=== PATIENT | male | born 1980 | race Caucasian/White ===

== ENCOUNTER 2019-06-21 16:55 | Inpatient (IN) | payer BC ==
[2019-06-21] VITALS (8 sets, daily range): BP systolic 130–160; BP diastolic 81–101; PULSE 99–128; RESP 15–27; Ht 177.8 cm; Wt 116.6 kg
[~2019-06-21] VITALS: Ht 177.8 cm; Wt 116.6 kg
[~2019-06-21 16:55] MED LIST: ACET500C5 PO; AMLO-147 PO; DOCU-144 PO; FAMO20TA18 PO; FER325 PO; POLY17PO6 PO
[2019-06-21] MEDS: morphine 4 MG/ML VIAL IV PRN ×2 (18:29→23:38)
[2019-06-21] MEDS ORDERED: ONDANSETRON 4 MG INJ IV PRN (18:30)
[2019-06-21] MEDS ORDERED: ACETAMINOPHEN 325 MG TAB PO PRN (18:30)
[2019-06-21] MEDS ORDERED: HYDROmorphONE 2 MG/ML SYG IV STA (19:24)
[2019-06-21] MEDS ORDERED: FENTAnyl 50 MCG/ML VIAL IV PRN (19:30)
[2019-06-21] MEDS: DEXTROSE 5%-0.45% NACL 1,000 ML IV SCH (20:41)
[2019-06-21] MEDS: FENTAnyl 50 MCG/ML VIAL IV PRN ×2 (21:05→23:00)
[2019-06-21] MEDS ORDERED: IOHEXOL 14.3 MG(I)/ML (ADULT) BTL PO ONE (22:30)
--- NOTE | 2019-06-21 23:11 | HP ---
DATE OF ADMISSION: 06/21/2019 CHIEF COMPLAINT: Severe left lower quadrant abdominal pain. HISTORY OF PRESENT ILLNESS: A 38-year-old male with unremarkable past medical history who was transf erred from [facility] after he presented to that emergency room with complaint of severe le ft lower quadrant abdominal pain for the last 2 days prior to admission. The patient was driving to [place] when he began to experience severe pain. He was evaluated in [place]. He was told to have h emorrhagic left renal cyst and asked to follow up with his doctor after he returned to [place]. The patient continued to have excruciating pain. He describes the pain radiating to left groin pain. No hematuria. No fevers or chills. No flank pain. Repeat CAT scan seen in [facility] showed the hemorrhagic cyst at the inferior pole of lalito guevara measuring about 13 x 10 x 8 cm with some mild pelvic fluid collection. PAST MEDICAL HISTORY: None. MEDICATIONS PRIOR TO ADMISSION: Percocet. SOCIAL HISTORY: The patient lives at home. 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 He denies tobacco or alcohol use. PHYSICAL EXAMINATION: GENERAL: Well-developed, well-nourished young male who is in no apparent distress. VITAL SIGNS: Blood pressure 148/81, pulse 112, respiration 19, temperature 99. HEENT: Extraocular muscles are intact. Pupils are equal and reactive to light bilaterally. Sclerae are anicteric. Oropharynx is clear and moist. NECK: Supple. No JVD, no carotid bruits. LUNGS: Clear to auscultation bilaterally. CARDIAC: Tachycardia. No murmurs or gallops. ABDOMEN: Soft. Left lower quadrant tenderness to palpation. No rebound or guarding. Normoactive b owel sounds. EXTREMITIES: No clubbing, cyanosis or edema. BACK: No CVA tenderness. NEUROLOGICAL: Nonfocal. ASSESSMENT: A 38-year-old male with hemorrhagic left renal cyst which has now evolved into a hematom a. The patient is having severe pain. Interventional radiology was not available at the time of adm ission. I spoke to interventional radiology and requested intervention for embolization first thing in the morning. I also discussed the case with Dr. Landis. According to him, embolization may not guarantee resolution of pain and may actually increase the pain due to ischemia. Risks and benefits were discussed with the patient. Interventional radiology requested repeat CAT scan with contrast. PLAN: 1. Admit to ICU. 2. Pain control with IV fentanyl. 3. CBC and BMP. 4. Repeat abdominal and pelvic CT angiogram. 5. Bilateral SCDs. 6. Plan of care was discussed with the patient, his and his brother at the bedside. Dictated By: MASHA MONTEMAYOR/ADDY Conf#: [id number] DID#: [id number]
[2019-06-22] VITALS (31 sets, daily range): BP systolic 121–160; BP diastolic 70–105; PULSE 86–117; RESP 13–27
[2019-06-22] MEDS ORDERED: IOHEXOL 300MG/ML 150 ML BTL ONE (00:47)
[2019-06-22] MEDS ORDERED: SOD CHLORIDE 0.9% 100 ML ONE (00:47)
[2019-06-22] MEDS: FENTAnyl 50 MCG/ML VIAL IV PRN ×5 (01:01→09:19)
[2019-06-22] MEDS: morphine 4 MG/ML VIAL IV PRN (02:31)
[2019-06-22] MEDS ORDERED: morphine 4 MG/ML VIAL IV PRN (03:30)
[2019-06-22] MEDS: DEXTROSE 5%-0.45% NACL 1,000 ML IV SCH (05:10)
[2019-06-22] MEDS: HYDROmorphONE 1 MG/ML SYG IV PRN ×5 (06:06→17:51)
--- NOTE | 2019-06-22 08:47 | CONS ---
Assessment/Plan Assessment/Plan Hospital Course (Demo Recall) This is a 38-year-old male who 3 days ago was driving to [place] when he felt severe pain in the left side of his abdomen. He went to emergency room and had a CT scan. He was told he has ruptured cyst was given pain medications and sent home. The patient continued to have severe pain and he went back to the emergency room at [place] and was transferred to [facility]. Patient having a lot of pain and requiring a lot of pain medications. Repeat CT angiogram did show retroperitoneal hematoma but did not show any blush to suggest any active bleeding. There is no history of trauma. CT abdominal angiography: IMPRESSION: 1. 9.6 x 7.7 x 16.2 cm localized hemorrhage/hematoma inferior to the left kidney with more diffuse hemorrhage throughout the left umer renal fat and the left retroperitoneal and extraperitoneal spaces extending into the left pelvis, displacing the urinary bladder to the right. Retroperitoneal hemorrhage also extends superiorly into the posterior left upper quadrant and crosses midline, running along the anterior margin of the right psoas muscle. 2. Small amount of suspected intraperitoneal hemorrhage adjacent to the liver and in the right pericolic gutter. 3. A smaller 1.7 cm hemorrhage/hematoma medial to the larger hematoma at the level of the lower pole of the left kidney. 4. No contrast extravasation or contrast puddling to suggest active bleeding. The patient has a lot of pain and requiring a lot of pain medications. I did review the CT scan with the radiologist and there is no active bleeding and no specific vessel that needs to be embolized at this time. We have to let the bleeding tamponade itself. Monitor his H&H and transfuse him as needed and control his blood pressure and pain medications. Consider pain management consultation. Consultation Date/Type/Reason Admit Date/Time Jun 21, 2019 at 17:41 Date of Consultation: Jun 22, 2019 Type of Consult Urology Reason for Consultation Hemorrhagic left renal cyst and retroperitoneal bleeding Requesting Provider: MASHA MI MD Date/Time of Note DATE: 06/22/19 TIME: 08:35 Hx of Present Illness This is a 38-year-old male who 3 days ago was driving to [employer] when he felt severe pain in the left side of his abdomen. He went to emergency room and had a CT scan. He was told he has ruptured cyst was given pain medications and sent home. The patient continued to have severe pain and he went back to the emergency room at [place] and was transferred to [facility]. Patient having a lot of pain and requiring a lot of pain medications. Repeat CT angiogram did show retroperitoneal hematoma but did not show any blush to suggest any active bleeding. There is no history of trauma. Constitutional: no complaints Eyes: no complaints ENT: no complaints Respiratory: no complaints Cardiovascular: No chest pain Gastrointestinal: pain (Left side of abdomen) Genitourinary: flank pain (Left side); No dysuria Musculoskeletal: back pain Skin: no complaints Neurologic: no complaints Endocrine: no complaints Lymphatic: no complaints Psychological: no complaints Immunologic: no complaints Past Medical History Medical History: hypertension (States he has high blood pressure sometime and that being monitored) Medications Current Medications Ondansetron HCl (Zofran Inj) 4 mg Q4H PRN IV NAUSEA AND/OR VOMITING; Start 06/21/19 at 18:30 Acetaminophen (Tylenol Tab) 650 mg Q4H PRN PO MILD PAIN(1-3)OR ELEVATED TEMP; Start 06/21/19 at 18:30 Dextrose/Sodium Chloride 1,000 ml @ 100 mls/hr Q10H IV Last administered on 06/22/19at 05:10; Admin Dose 100 MLS/HR; Start 06/21/19 at 19:30 Fentanyl (Sublimaze) 100 mcg Q2H PRN IV SEVERE PAIN LEVEL 7-10 Last administered on 06/22/19at 06:59; Admin Dose 100 MCG; Start 06/21/19 at 21:30 Hydromorphone HCl (Dilaudid) 1 mg Q2H PRN IV SEVERE PAIN LEVEL 7-10 Last administered on 06/22/19at 07:34; Admin Dose 1 MG; Start 06/22/19 at 06:00 Allergies: Coded Allergies: No Known Allergy (Unverified , 06/21/19) Past Surgical History Past Surgical Hx: no surgical history Social History Alcohol Use: occasionally Smoking Status: Never smoker Drug Use: none Exam/Review of Systems Exam Vitals Vital Signs Date Temp Pulse Resp B/P (MAP) Pulse Ox O2 O2 Flow FiO2 Time Delivery Rate 06/22/19 98.3 97 19 121/84 95 Nasal 2.0 08:00 (96) Cannula Intake and Output 8/09/2906/21/19 06/22/19 1515:00 23:00 07:00 IntakeIntake Total 300 ml 800 ml OutputOutput Total 250 ml 350 ml BalanceBalance 50 ml 450 ml Constitutional: alert, oriented, distress (Constant pain) Psych: no complaints Head: normocephalic Eyes: nl conjunctiva ENMT: nl external ears & nose Neck: supple Respiratory: normal air movement; No wheezing Cardiovascular: No jugular venous distention (JVD) Gastrointestinal: tender (Left side and suprapubic area) Genitourinary - Male: CVA tenderness (Left flank) Musculoskeletal: nl extremities to inspection Extremities: No calf tenderness Neurological: nl mental status Skin: nl turgor Results Result Diagram: 06/22/1944606/22/19446 Results 24hrs Laboratory Tests Test 06/21/19 22:27 06/22/19 00:40 06/22/19 04:47 White Blood Count 12.0 H 11.7 H Red Blood Count 4.36 L 4.09 L Hemoglobin 12.4 L 12.2 L 11.7 L Hematocrit 38.9 L 37.7 L 36.8 L Mean Corpuscular Volume 89.2 90.0 Mean Corpuscular Hemoglobin 28.4 L 28.6 L Mean Corpuscular Hemoglobin Concent 31.9 L 31.8 L Red Cell Distribution Width 13.5 13.5 Platelet Count 294 320 Mean Platelet Volume 8.9 9.4 Immature Granulocytes % 0.300 0.600 H Neutrophils % 78.1 H 75.3 Lymphocytes % 12.1 L 12.3 L Monocytes % 9.1 11.1 H Eosinophils % 0.2 0.5 Basophils % 0.2 0.2 Nucleated Red Blood Cells % 0.0 0.0 Immature Granulocytes # 0.040 H 0.070 H Neutrophils # 9.4 H 8.8 H Lymphocytes # 1.5 1.4 Monocytes # 1.1 H 1.3 H Eosinophils # 0.0 0.1 Basophils # 0.0 0.0 Nucleated Red Blood Cells # 0.0 0.0 Sodium Level 137 136 Potassium Level 4.1 4.0 Chloride Level 101 99 Carbon Dioxide Level 28 29 Anion Gap 8 8 Blood Urea Nitrogen 13 12 Creatinine 0.97 0.94 Est Glomerular Filtrat Rate mL/min > 60 > 60 Glucose Level 131 135 Calcium Level 8.9 8.6 Phosphorus Level 4.2 Magnesium Level 2.1 Prothrombin Time 14.5 Prothrombin Time Ratio 1.1 INR International Normalized Ratio 1.12 Activated Partial Thromboplast Time 32.[address] abdominal angiography: IMPRESSION: 1. 9.6 x 7.7 x 16.2 cm localized hemorrhage/hematoma inferior to the left kidney with more diffuse hemorrhage throughout the left umer renal fat and the left retroperitoneal and extraperitoneal spaces extending into the left pelvis, displacing the urinary bladder to the right. Retroperitoneal hemorrhage also extends superiorly into the posterior left upper quadrant and crosses midline, running along the anterior margin of the right psoas muscle. 2. Small amount of suspected intraperitoneal hemorrhage adjacent to the liver and in the right pericolic gutter. 3. A smaller 1.7 cm hemorrhage/hematoma medial to the larger hematoma at the level of the lower pole of the left kidney. 4. No contrast extravasation or contrast puddling to suggest active bleeding. Medications Medication Current Medications Ondansetron HCl (Zofran Inj) 4 mg Q4H PRN IV NAUSEA AND/OR VOMITING; Start 06/21/19 at 18:30 Acetaminophen (Tylenol Tab) 650 mg Q4H PRN PO MILD PAIN(1-3)OR ELEVATED TEMP; Start 06/21/19 at 18:30 Dextrose/Sodium Chloride 1,000 ml @ 100 mls/hr Q10H IV Last administered on 06/22/19at 05:10; Admin Dose 100 MLS/HR; Start 06/21/19 at 19:30 Fentanyl (Sublimaze) 100 mcg Q2H PRN IV SEVERE PAIN LEVEL 7-10 Last adm inistered on 06/22/19at 06:59; Admin Dose 100 MCG; Start 06/21/19 at 21:30 Hydromorphone HCl (Dilaudid) 1 mg Q2H PRN IV SEVERE PAIN LEVEL 7-10 Last administered on 06/22/19 07:34; Admin Dose 1 MG; Start 06/22/19 at 06:00 ANTONINO WEBBER MD Jun 22, 2019 08:47
[2019-06-22] MEDS ORDERED: NALOXONE (0.4 MG/ML) INJ IV PRN (10:30)
[2019-06-22] MEDS: POLYETHYLENE GLYCOL 17 GM PACKET PO SCH (12:39)
[2019-06-22] MEDS: PANTOPRAZOLE 40 MG INJ IV SCH (12:40)
[2019-06-22] MEDS: HYDROCODONE/APAP (10/325) TAB PO PRN ×3 (12:49→22:00)
--- NOTE | 2019-06-22 13:48 | CONS ---
Assessment/Plan Assessment/Plan Hospital Course (Demo Recall) 1. Left retroperitoneal hematoma, ? etiology. No active bleeding on CT angio -routine h/h -tx prn -ivf -supportive -optimize lytes 2. Anemia 2nd above -as above 3. Tachycardia 2nd above & pain, improved -ivf/prbc -pain control 4. Morbid obesity -diet and eventual exercise optimization 5. HTN -diet/med optimization -weight loss encouraged Thank you very much for consulting me in this patient's care, Consultation Date/Type/Reason Admit Date/Time Jun 21, 2019 at 17:41 Date of Consultation: Jun 22, 2019 Type of Consult G. Surgical Reason for Consultation Abdominal pain Retroperitoneal bleed Anemia BMI 37 Date/Time of Note DATE: 06/22/19 TIME: 13:48 12 point ros negative unless otherwise addressed in chart Past Medical History BMI 37, obesity Retroperitoneal bleeding Tachycardia HTN hx Medications Current Medications Ondansetron HCl (Zofran Inj) 4 mg Q4H PRN IV NAUSEA AND/OR VOMITING; Start 06/21/19 at 18:30 Acetaminophen (Tylenol Tab) 650 mg Q4H PRN PO MILD PAIN(1-3)OR ELEVATED TEMP; Start 06/21/19 at 18:30 Dextrose/Sodium Chloride 1,000 ml @ 100 mls/hr Q10H IV Last administered on 06/22/19at 05:10; Admin Dose 100 MLS/HR; Start 06/21/19 at 19:30 Fentanyl (Sublimaze) 100 mcg Q2H PRN IV SEVERE PAIN LEVEL 7-10 Last administered on 06/22/19at 09:19; Admin Dose 100 MCG; Start 06/21/19 at 21:30 Hydromorphone HCl (Dilaudid) 1 mg Q2H PRN IV SEVERE PAIN LEVEL 7-10 Last administered on 06/22/19at 13:44; Admin Dose 1 MG; Start 06/22/19 at 06:00 Naloxone HCl (Narcan) 0.2 mg Q2M PRN IV DECREASED REPIRATORY RATE; Start 06/22/19 at 10:30 Pantoprazole (Protonix Iv) 40 mg DAILY@06 IV Last administered on 06/22/19at 12:40; Admin Dose 40 MG; Start 06/22/19 at 11:30 Polyethylene Glycol (Miralax) 17 gm DAILY PO Last administered on 06/22/19at 12:39; Admin Dose 17 GM; Start 06/22/19 at 11:30 Bisacodyl (Dulcolax) 5 mg DAILY PRN PO CONSTIPATION; Start 06/22/19 at 11:30 Acetaminophen/ Hydrocodone Bitart ([place] (10/325)) 1 tab Q4H PRN PO MODERATE PAIN LEVEL 4-6 Last administered on 06/22/19at 12:49; Admin Dose 1 TAB; Start 06/22/19 at 11:30 Allergies: Coded Allergies: No Known Allergy (Unverified , 06/21/19) Past Surgical History Past Surgical Hx: no surgical history Family History Significant Family History: no pertinent family hx Social History Insurance Administrator Alcohol Use: occasionally Smoking Status: Never smoker Drug Use: none Exam/Review of Systems Exam Vitals Vital Signs Date Temp Pulse Resp B/P (MAP) Pulse Ox O2 O2 Flow FiO2 Time Delivery Rate 06/22/19 95 18 129/81 96 Nasal 2.0 09:00 (97) Cannula 06/22/19 98.3 08:00 Intake and Output 06/21/19 06/21/19 06/22/19 1515:00 23:00 07:00 IntakeIntake Total 300 ml 900 ml OutputOutput Total 250 ml 350 ml BalanceBalance 50 ml 550 ml Constitutional: alert, oriented, obese Psych: anxiety; No confusion Head: normocephalic, atraumatic Eyes: nl conjunctiva, EOMI, PERRL; No icteric ENMT: nl lips & teeth, nl nasal mucosa & septum; No mucosa pink and moist Neck: supple, non-tender; No jvd Respiratory: normal air movement; No congested cough, No labored breathing, No wheezing Cardiovascular: regular rate and rhythm; No edema Gastrointestinal: soft, distended, tender (min without rigidity); No rebound or guarding Genitourinary - Male: nl penis, nl scrotum Musculoskeletal: nl extremities to inspection; No muscle weakness Extremities: normal pulses; No calf tenderness, No edema Neurological: nl mental status, nl speech, nl strength; No confused Skin: nl turgor; No rash or lesions, No diaphoresis Lymph: nl lymph nodes Results Result Diagram: 06/22/19 1228 06/22/19 8337 Results 24hrs Laboratory Tests Test 06/21/19 22:27 06/22/19 00:40 06/22/19 04:47 06/22/19 12:12 White Blood Count 12.0 H 11.7 H Red Blood Count 4.36 L 4.09 L Hemoglobin 12.4 L 12.2 L 11.7 L Hematocrit 38.9 L 37.7 L 36.8 L Mean Corpuscular 89.2 90.0 Volume Mean Corpuscular 28.4 L 28.6 L Hemoglobin Mean Corpuscular 31.9 L 31.8 L Hemoglobin Concent Red Cell 13.5 13.5 Distribution Width Platelet Count 294 320 Mean Platelet Volume 8.9 9.4 Immature 0.300 0.600 H Granulocytes % Neutrophils % 78.1 H 75.3 Lymphocytes % 12.1 L 12.3 L Monocytes % 9.1 11.1 H Eosinophils % 0.2 0.5 Basophils % 0.2 0.2 Nucleated Red Blood 0.0 0.0 Cells % Immature 0.040 H 0.070 H Granulocytes # Neutrophils # 9.4 H 8.8 H Lymphocytes # 1.5 1.4 Monocytes # 1.1 H 1.3 H Eosinophils # 0.0 0.1 Basophils # 0.0 0.0 Nucleated Red Blood 0.0 0.0 Cells # Sodium Level 137 136 Potassium Level 4.1 4.0 Chloride Level 101 99 Carbon Dioxide Level 28 29 Anion Gap 8 8 Blood Urea Nitrogen 13 12 Creatinine 0.97 0.94 Est Glomerular > 60 > 60 Filtrat Rate mL/min Glucose Level 131 135 Calcium Level 8.9 8.6 Phosphorus Level 4.2 Magnesium Level 2.1 Prothrombin Time 14.5 Prothrombin Time 1.1 Ratio INR International 1.12 Normalized Ratio Activated 32.2 Partial Thromboplast Time Bedside Glucose 118 Test 06/22/19 12:27 06/22/19 12:28 Lactic Acid Level 1.0 Hemoglobin 11.5 L Hematocrit 35.8 L Creatine Kinase [address] Angio: 1. 9.6 x 7.7 x 16.2 cm localized hemorrhage/hematoma inferior to the left kidney with more diffuse hemorrhage throughout the left umer renal fat and the left retroperitoneal and extraperitoneal spaces extending into the left pelvis, displacing the urinary bladder to the right. Retroperitoneal hemorrhage also extends superiorly into the posterior left upper quadrant and crosses midline, running along the anterior margin of the right psoas muscle. 2. Small amount of suspected intraperitoneal hemorrhage adjacent to the liver and in the right pericolic gutter. 3. A smaller 1.7 cm hemorrhage/hematoma medial to the larger hematoma at the level of the lower pole of the left kidney. 4. No contrast extravasation or contrast puddling to suggest active bleeding. Medications Medication Current Medications Ondansetron HCl (Zofran Inj) 4 mg Q4H PRN IV NAUSEA AND/OR VOMITING; Start 06/21/19 at 18:30 Acetaminophen (Tylenol Tab) 650 mg Q4H PRN PO MILD PAIN(1-3)OR ELEVATED TEMP; Start 06/21/19 at 18:30 Dextrose/Sodium Chloride 1,000 ml @ 100 mls/hr Q10H IV Last administered on 06/22/19 05:10; Admin Dose 100 MLS/HR; Start 06/21/19 at 19:30 Fentanyl (Sublimaze) 100 mcg Q2H PRN IV SEVERE PAIN LEVEL 7-10 Last administered on 06/22/19 09:19; Admin Dose 100 MCG; Start 06/21/19 at 21:30 Hydromorphone HCl (Dilaudid) 1 mg Q2H PRN IV SEVERE PAIN LEVEL 7-10 Last administered on 06/22/19 13:44; Admin Dose 1 MG; Start 06/22/19 at 06:00 Naloxone HCl (Narcan) 0.2 mg Q2M PRN IV DECREASED REPIRATORY RATE; Start 06/22/19 at 10:30 Pantoprazole (Protonix Iv) 40 mg DAILY@06 IV Last administered on 06/22/19 12:40; Admin Dose 40 MG; Start 06/22/19 at 11:30 Polyethylene Glycol (Miralax) 17 gm DAILY PO Last administered on 06/22/19at 12:39; Admin Dose 17 GM; Start 06/22/19 at 11:30 Bisacodyl (Dulcolax) 5 mg DAILY PRN PO CONSTIPATION; Start 06/22/19 at 11:30 Acetaminophen/ Hydrocodone Bitart ([place] (10/325)) 1 tab Q4H PRN PO MODERATE PAIN LEVEL 4-6 Last administered on 06/22/19 12:49; Admin Dose 1 TAB; Start 06/22/19 at 11:30 CHIP DYER MD Jun 22, 2019 13:48
--- NOTE | 2019-06-22 20:30 | PN ---
Date/Time of Note Date/Time of Note DATE: 06/22/19 TIME: 20:21 Assessment/Plan VTE Prophylaxis Risk score (from Nsg)>0 risk: 1 SCD applied (from Nsg): Yes Pharmacological prophylaxis: NA/contraindicated Pharm contraindication: bleeding Lines/Catheters IV Catheter Type (from Nrsg): Peripheral IV Urinary Cath still in place: Yes Reason Cath still needed: other (indicate) (monitor bladder pressure ) Assessment/Plan Hospital Course 38 m with no PMH PW severe abdominal and pelvic pain for the past several days in the setting of large retroperitoneal bleeding/ hematoma without evidence of active bleeding on CT angiogram. Seen by urology who reviewed the images with radiology . No role for embolization. Seen by general surgery and abdominal compartment syndrome was ruled out . Plan is to monitor vitals as well as HH and manage the pain. He might require [employer] Dilaudid. # large retroperitoneal bleeding/ hematoma without evidence of active bleeding on CT angiogram # Severe abdominopelvic pain #Constipation - monitor vitals as well as HH and manage the pain. He might require [employer] Dilaudid. - monitor bladder pressure using a Car given high risk of abdominal compartment syndrome - Bowel regimen - Avoid heparin products and antiplatelets - SCD of DVT PPX , Pepcid for GI PPX Result Diagram: 06/22/19 1228 06/22/19 0447 Results 24hrs Laboratory Tests Test 06/21/19 22:27 06/22/19 00:40 06/22/19 04:47 06/22/19 12:12 White Blood Count 12.0 H 11.7 H Red Blood Count 4.36 L 4.09 L Hemoglobin 12.4 L 12.2 L 11.7 L Hematocrit 38.9 L 37.7 L 36.8 L Mean Corpuscular 89.2 90.0 Volume Mean Corpuscular 28.4 L 28.6 L Hemoglobin Mean Corpuscular 31.9 L 31.8 L Hemoglobin Concent Red Cell 13.5 13.5 Distribution Width Platelet Count 294 320 Mean Platelet Volume 8.9 9.4 Immature 0.300 0.600 H Granulocytes % Neutrophils % 78.1 H 75.3 Lymphocytes % 12.1 L 12.3 L Monocytes % 9.1 11.1 H Eosinophils % 0.2 0.5 Basophils % 0.2 0.2 Nucleated Red Blood 0.0 0.0 Cells % Immature 0.040 H 0.070 H Granulocytes # Neutrophils # 9.4 H 8.8 H Lymphocytes # 1.5 1.4 Monocytes # 1.1 H 1.3 H Eosinophils # 0.0 0.1 Basophils # 0.0 0.0 Nucleated Red Blood 0.0 0.0 Cells # Sodium Level 137 136 Potassium Level 4.1 4.0 Chloride Level 101 99 Carbon Dioxide Level 28 29 Anion Gap 8 8 Blood Urea Nitrogen 13 12 Creatinine 0.97 0.94 Est Glomerular > 60 > 60 Filtrat Rate mL/min Glucose Level 131 135 Calcium Level 8.9 8.6 Phosphorus Level 4.2 Magnesium Level 2.1 Prothrombin Time 14.5 Prothrombin Time 1.1 Ratio INR International 1.12 Normalized Ratio Activated 32.2 Partial Thromboplast Time Bedside Glucose 118 Test 06/22/19 12:27 06/22/19 12:28 Lactic Acid Level 1.0 Hemoglobin 11.5 L Hematocrit 35.8 L Creatine Kinase 55 Subjective 24 Hr Interval Summary Free Text/Dictation severe LLQ pain extending to the right , controlled with narcotics, not passing gas , no BM , no dizziness or lightheadedness Exam/Review of Systems Exam Vitals Vital Signs Date Temp Pulse Resp B/P (MAP) Pulse Ox O2 O2 Flow FiO2 Time Delivery Rate 06/22/19 97 14 121/97 96 18:00 (105) 06/22/19 98.4 Nasal 2.0 16:00 Cannula Intake and Output 06/21/19 06/21/19 06/22/19 1515:00 23:00 07:00 IntakeIntake Total 300 ml 900 ml OutputOutput Total 250 ml 350 ml BalanceBalance 50 ml 550 ml Constitutional: alert, oriented, well developed Head: normocephalic, atraumatic Eyes: nl conjunctiva, EOMI, nl lids, nl sclera, PERRL ENMT: nl external ears & nose, nl lips & teeth, nl nasal mucosa & septum Neck: supple, non-tender Respiratory: clear to auscultation, normal air movement Cardiovascular: regular rate and rhythm, nl pulses Gastrointestinal: soft, nl liver, spleen, distended, firm, mass, tender Extremities: normal pulses Neurological: CORE FITTER II-XII intact, nl mental status, nl speech, nl strength Results Results 24hrs Laboratory Tests Test 06/21/19 22:27 06/22/19 00:40 06/22/19 04:47 06/22/19 12:12 White Blood Count 12.0 H 11.7 H Red Blood Count 4.36 L 4.09 L Hemoglobin 12.4 L 12.2 L 11.7 L Hematocrit 38.9 L 37.7 L 36.8 L Mean Corpuscular 89.2 90.0 Volume Mean Corpuscular 28.4 L 28.6 L Hemoglobin Mean Corpuscular 31.9 L 31.8 L Hemoglobin Concent Red Cell 13.5 13.5 Distribution Width Platelet Count 294 320 Mean Platelet Volume 8.9 9.4 Immature 0.300 0.600 H Granulocytes % Neutrophils % 78.1 H 75.3 Lymphocytes % 12.1 L 12.3 L Monocytes % 9.1 11.1 H Eosinophils % 0.2 0.5 Basophils % 0.2 0.2 Nucleated Red Blood 0.0 0.0 Cells % Immature 0.040 H 0.070 H Granulocytes # Neutrophils # 9.4 H 8.8 H Lymphocytes # 1.5 1.4 Monocytes # 1.1 H 1.3 H Eosinophils # 0.0 0.1 Basophils # 0.0 0.0 Nucleated Red Blood 0.0 0.0 Cells # Sodium Level 137 136 Potassium Level 4.1 4.0 Chloride Level 101 99 Carbon Dioxide Level 28 29 Anion Gap 8 8 Blood Urea Nitrogen 13 12 Creatinine 0.97 0.94 Est Glomerular > 60 > 60 Filtrat Rate mL/min Glucose Level 131 135 Calcium Level 8.9 8.6 Phosphorus Level 4.2 Magnesium Level 2.1 Prothrombin Time 14.5 Prothrombin Time 1.1 Ratio INR International 1.12 Normalized Ratio Activated 32.2 Partial Thromboplast Time Bedside Glucose 118 Test 06/22/19 12:27 06/22/19 12:28 Lactic Acid Level 1.0 Hemoglobin 11.5 L Hematocrit 35.8 L Creatine Kinase 55 Medications Medication Current Medications Ondansetron HCl (Zofran Inj) 4 mg Q4H PRN IV NAUSEA AND/OR VOMITING; Start 06/21/19 at 18:30 Acetaminophen (Tylenol Tab) 650 mg Q4H PRN PO MILD PAIN(1-3)OR ELEVATED TEMP; Start 06/21/19 at 18:30 Fentanyl (Sublimaze) 100 mcg Q2H PRN IV SEVERE PAIN LEVEL 7-10 Last administered on 06/22/19 09:19; Admin Dose 100 MCG; Start 06/21/19 at 21:30 Hydromorphone HCl (Dilaudid) 1 mg Q2H PRN IV SEVERE PAIN LEVEL 7-10 Last administered on 06/22/19at 17:51; Admin Dose 1 MG; Start 06/22/19 at 06:00 Naloxone HCl (Narcan) 0.2 mg Q2M PRN IV DECREASED REPIRATORY RATE; Start 06/22/19 at 10:30 Pantoprazole (Protonix Iv) 40 mg DAILY@06 IV Last administered on 06/22/19 12:40; Admin Dose 40 MG; Start 06/22/19 at 11:30 Polyethylene Glycol (Miralax) 17 gm DAILY PO Last administered on 06/22/19 12:39; Admin Dose 17 GM; Start 06/22/19 at 11:30 Bisacodyl (Dulcolax) 5 mg DAILY PRN PO CONSTIPATION; Start 06/22/19 at 11:30 Acetaminophen/ Hydrocodone Bitart ([place] (10/325)) 1 tab Q4H PRN PO MODERATE PAIN LEVEL 4-6 Last administered on 06/22/19at 17:53; Admin Dose 1 TAB; Start 06/22/19 at 11:30 KODAK CAHSE MD Jun 22, 2019 20:30
[2019-06-23] VITALS (23 sets, daily range): BP systolic 114–174; BP diastolic 74–109; PULSE 86–108; RESP 12–26
[2019-06-23] MEDS: HYDROmorphONE 1 MG/ML SYG IV PRN (00:17)
[2019-06-23] MEDS: HYDROCODONE/APAP (10/325) TAB PO PRN ×3 (03:55→19:59)
[2019-06-23] MEDS: PANTOPRAZOLE 40 MG INJ IV SCH (06:14)
[2019-06-23] MEDS: POLYETHYLENE GLYCOL 17 GM PACKET PO SCH (08:34)
[2019-06-23] MEDS: BISACODYL (EC) 5 MG TAB PO PRN (10:34)
--- NOTE | 2019-06-23 13:03 | PN ---
Date/Time of Note Date/Time of Note DATE: 06/23/19 TIME: 13:01 Assessment/Plan Lines/Catheters IV Catheter Type (from Nrsg): Peripheral IV Car in Place (from Nrsg): Yes Assessment/Plan Chief Complaint/Hosp Course 1. Left retroperitoneal hematoma, No active bleeding on CT angio but slow decrease in Hg -routine h/h > continue -ivf -supportive -optimize lytes 2. Anemia 2nd above -as above 3. Tachycardia 2nd above & pain, improved -ivf/prbc -pain control 4. Morbid obesity -diet and eventual exercise optimization 5. HTN -diet/med optimization -weight loss encouraged Thank you, Subjective 24 Hr Interval Summary Feels a lot better. No f/c. No n/v. Car removed and urinating some. No siddiqi/visual or neuro changes. No dysuria. Flatus but no BM. Labs noted with slow decrease in Hg. Exam/Review of Systems Vital Signs Vitals Vital Signs Date Temp Pulse Resp B/P (MAP) Pulse Ox O2 O2 Flow FiO2 Time Delivery Rate 06/23/19 97.8 90 144/94 12:04 (111) 06/23/19 22 11:00 06/23/19 96 Room Air 09:00 06/23/19 2.0 08:00 Intake and Output 06/22/19 06/22/19 06/23/19 1515:00 23:00 07:00 IntakeIntake Total 800 ml 370 ml 170 ml OutputOutput Total 300 ml 710 ml 390 ml BalanceBalance 500 ml -340 ml -220 ml Exam Free Text/Dictation Constitutional: alert, oriented, obese Psych: anxiety; No confusion Head: normocephalic, atraumatic Eyes: nl conjunctiva, EOMI, PERRL; No icteric ENMT: nl lips & teeth, nl nasal mucosa & septum; No mucosa pink and moist Neck: supple, non-tender; No jvd Respiratory: normal air movement; No congested cough, No labored breathing, No wheezing Cardiovascular: regular rate and rhythm; No edema Gastrointestinal: soft, distended, NT No rebound or guarding Genitourinary - Male: nl penis, nl scrotum Musculoskeletal: nl extremities to inspection; No muscle weakness Extremities: normal pulses; No calf tenderness, No edema Neurological: nl mental status, nl speech, nl strength; No confused Skin: nl turgor; No rash or lesions, No diaphoresis Lymph: nl lymph nodes Results Result Diagram: 06/23/19 0424 06/23/19 0424 CHIP DYER MD Jun 23, 2019 13:03
--- NOTE | 2019-06-23 13:05 | PN ---
Date/Time of Note Date/Time of Note DATE: 06/23/19 TIME: 12:58 Assessment/Plan Lines/Catheters IV Catheter Type (from Nrsg): Peripheral IV Car in Place (from Nrsg): Yes Assessment/Plan Chief Complaint/Hosp Course 1. Left retroperitoneal hematoma, ? etiology. No active bleeding on CT angio; hh stable, abdominal discomfort and pressure improving -routine h/h, tx prn -ivf -supportive -optimize lytes -Close monitoring> no emergent surgical intervention necessary at this time 2. Anemia 2nd above -as above 3. Tachycardia 2nd above & pain, improved -ivf/prbc -pain control 4. Morbid obesity -diet and eventual exercise optimization 5. HTN -diet/med optimization -weight loss encouraged Thank you. Patient seen and examined in collaboration with Dr. Jl Bradley. Subjective 24 Hr Interval Summary Feels better. Abdominal pressure improved. Able to ambulate with less discomfort. H&H stable. Some hesitancy. No fevers, chills, sob, congested cough, cp, palpitations, siddiqi, dizziness, nausea, vomiting, diarrhea, dysuria. Exam/Review of Systems Vital Signs Vitals Vital Signs Date Temp Pulse Resp B/P (MAP) Pulse Ox O2 O2 Flow FiO2 Time Delivery Rate 06/23/19 97.8 90 144/94 12:04 (111) 06/23/19 22 11:00 06/23/19 96 Room Air 09:00 06/23/19 2.0 08:00 Intake and Output 06/22/19 06/22/19 06/23/19 1515:00 23:00 07:00 IntakeIntake Total 800 ml 370 ml 170 ml OutputOutput Total 300 ml 710 ml 390 ml BalanceBalance 500 ml -340 ml -220 ml Exam Free Text/Dictation Constitutional: alert, oriented, obese Psych: anxiety; No confusion Head: normocephalic, atraumatic Eyes: nl conjunctiva, EOMI, PERRL; No icteric ENMT: nl lips & teeth, nl nasal mucosa & septum; No mucosa pink and moist Neck: supple, non-tender; No jvd Respiratory: normal air movement; No congested cough, No labored breathing, No wheezing Cardiovascular: regular rate and rhythm; No edema Gastrointestinal: soft, distended, tender (min without rigidity); No rebound or guarding Genitourinary - Male: nl penis, nl scrotum Musculoskeletal: nl extremities to inspection; No muscle weakness Extremities: normal pulses; No calf tenderness, No edema Neurological: nl mental status, nl speech, nl strength; No confused Skin: nl turgor; No rash or lesions, No diaphoresis Lymph: nl lymph nodes Results Result Diagram: 06/23/19 0424 06/23/19 0424 ADE MENDEZ NP Jun 23, 2019 13:05
--- NOTE | 2019-06-23 17:05 | PN ---
Date/Time of Note Date/Time of Note DATE: 06/23/19 TIME: 17:02 Assessment/Plan VTE Prophylaxis Risk score (from Ns)>0 risk: 0 SCD applied (from Ns): No SCD contraindicated: other Pharmacological prophylaxis: NA/contraindicated Pharm contraindication: bleeding Lines/Catheters IV Catheter Type (from [facility]): Peripheral IV Urinary Cath still in place: No Assessment/Plan Hospital Course 38 m with no PMH PW severe abdominal and pelvic pain for the past several days in the setting of large retroperitoneal bleeding/ hematoma without evidence of active bleeding on CT angiogram. Seen by urology who reviewed the images with radiology . No role for embolization. Seen by general surgery and abdominal compartment syndrome was ruled out . Plan is to monitor vitals as well as HH and manage the pain while he will be at Bed rest with bathroom privileges. He is being followed by gen. surgery and urology. # large retroperitoneal bleeding/ hematoma without evidence of active bleeding on CT angiogram # Severe abdominopelvic pain , #Constipation #Anemia of acute blood loss , Hb slowly trending down #mild Renal insufficiency noted , 06/23 - transfer to telemetry floor - Bed rest with bathroom privileges - monitor vitals as well as HH and manage the pain. - Bowel regimen - NS 100 cc /h and monitor Cr , Total CK normal - Avoid heparin products and antiplatelets - SCD of DVT PPX , Pepcid for GI PPX Result Diagram: 06/23/194 06/23/194 Results 24hrs Laboratory Tests Test 06/22/19 20:50 06/23/19 04:24 Hemoglobin 10.9 L 10.7 L Hematocrit 34.2 L 33.4 L White Blood Count 9.5 Red Blood Count 3.67 L Mean Corpuscular Volume 91.0 Mean Corpuscular Hemoglobin 29.2 Mean Corpuscular Hemoglobin Concent 32.0 Red Cell Distribution Width 13.2 Platelet Count 321 Mean Platelet Volume 9.0 Immature Granulocytes % 0.300 Neutrophils % 64.2 Lymphocytes % 21.8 Monocytes % 11.3 H Eosinophils % 2.1 Basophils % 0.3 Nucleated Red Blood Cells % 0.0 Immature Granulocytes # 0.030 Neutrophils # 6.1 Lymphocytes # 2.1 Monocytes # 1.1 H Eosinophils # 0.2 Basophils # 0.0 Nucleated Red Blood Cells # 0.0 Sodium Level 136 Potassium Level 4.7 Chloride Level 96 L Carbon Dioxide Level 35 H Anion Gap 5 Blood Urea Nitrogen 14 Creatinine 1.12 Est Glomerular Filtrat Rate mL/min > 60 Glucose Level 123 Calcium Level 8.8 Phosphorus Level 3.8 Magnesium Level 2.3 Total Bilirubin 0.6 Direct Bilirubin 0.00 Indirect Bilirubin 0.6 Aspartate Amino Transf (AST/SGOT) 18 Alanine Aminotransferase (ALT/SGPT) 31 Alkaline Phosphatase 46 Total Protein 7.0 Albumin 3.7 Globulin 3.30 H Albumin/Globulin Ratio 1.12 Subjective 24 Hr Interval Summary Free Text/Dictation Pain has significantly improved , he is urinating without difficulty, no BM but passing gas Exam/Review of Systems Exam Vitals Vital Signs Date Temp Pulse Resp B/P (MAP) Pulse Ox O2 O2 Flow FiO2 Time Delivery Rate 06/23/19 98.1 102 21 96 16:00 06/23/19 138/75 Room Air 14:00 (96) 06/23/19 2.0 08:00 Intake and Output 06/22/19 06/22/19 06/23/19 1515:00 23:00 07:00 IntakeIntake Total 800 ml 370 ml 170 ml OutputOutput Total 300 ml 710 ml 390 ml BalanceBalance 500 ml -340 ml -220 ml Exam Constitutional: alert, oriented, well developed Head: normocephalic, atraumatic Eyes: nl conjunctiva, EOMI, nl lids, nl sclera, PERRL ENMT: nl external ears & nose, nl lips & teeth, nl nasal mucosa & septum Neck: supple, non-tender Respiratory: clear to auscultation, normal air movement Cardiovascular: regular rate and rhythm, nl pulses Gastrointestinal: soft, , distended, firm, mass, tender n rebound and no guarding Extremities: normal pulses Neurological: BAND SAW [employer]NER II-XII intact, nl mental status, nl speech, nl strength Results Results 24hrs Laboratory Tests Test 06/22/19 20:50 06/23/19 04:24 Hemoglobin 10.9 L 10.7 L Hematocrit 34.2 L 33.4 L White Blood Count 9.5 Red Blood Count 3.67 L Mean Corpuscular Volume 91.0 Mean Corpuscular Hemoglobin 29.2 Mean Corpuscular Hemoglobin Concent 32.0 Red Cell Distribution Width 13.2 Platelet Count 321 Mean Platelet Volume 9.0 Immature Granulocytes % 0.300 Neutrophils % 64.2 Lymphocytes % 21.8 Monocytes % 11.3 H Eosinophils % 2.1 Basophils % 0.3 Nucleated Red Blood Cells % 0.0 Immature Granulocytes # 0.030 Neutrophils # 6.1 Lymphocytes # 2.1 Monocytes # 1.1 H Eosinophils # 0.2 Basophils # 0.0 Nucleated Red Blood Cells # 0.0 Sodium Level 136 Potassium Level 4.7 Chloride Level 96 L Carbon Dioxide Level 35 H Anion Gap 5 Blood Urea Nitrogen 14 Creatinine 1.12 Est Glomerular Filtrat Rate mL/min > 60 Glucose Level 123 Calcium Level 8.8 Phosphorus Level 3.8 Magnesium Level 2.3 Total Bilirubin 0.6 Direct Bilirubin 0.00 Indirect Bilirubin 0.6 Aspartate Amino Transf (AST/SGOT) 18 Alanine Aminotransferase (ALT/SGPT) 31 Alkaline Phosphatase 46 Total Protein 7.0 Albumin 3.7 Globulin 3.30 H Albumin/Globulin Ratio 1.12 Medications Medication Current Medications Ondansetron HCl (Zofran Inj) 4 mg Q4H PRN IV NAUSEA AND/OR VOMITING; Start 06/21/19 at 18:30 Acetaminophen (Tylenol Tab) 650 mg Q4H PRN PO MILD PAIN(1-3)OR ELEVATED TEMP; Start 06/21/19 at 18:30 Hydromorphone HCl (Dilaudid) 1 mg Q2H PRN IV SEVERE PAIN LEVEL 7-10 Last administered on 06/23/19at 00:17; Admin Dose 1 MG; Start 06/22/19 at 06:00 Naloxone HCl (Narcan) 0.2 mg Q2M PRN IV DECREASED REPIRATORY RATE; Start 06/22/19 at 10:30 Polyethylene Glycol (Miralax) 17 gm DAILY PO Last administered on 06/23/19at 08:34; Admin Dose 17 GM; Start 06/22/19 at 11:30 Bisacodyl (Dulcolax) 5 mg DAILY PRN PO CONSTIPATION Last administered on 06/23/19at 10:34; Admin Dose 5 MG; Start 06/22/19 at 11:30 Acetaminophen/ Hydrocodone Bitart ([place] (10/325)) 1 tab Q4H PRN PO MODERATE PAIN LEVEL 4-6 Last administered on 06/23/19at 08:34; Admin Dose 1 TAB; Start 06/22/19 at 11:30 Famotidine (Pepcid) 20 mg HS PO ; Start 06/23/19 at 21:00 KODAK CHASE MD Jun 23, 2019 17:05
[2019-06-23] MEDS: SOD CHLORIDE 0.9% 1,000 ML IV SCH (17:41)
--- NOTE | 2019-06-23 19:23 | CONS ---
Consult Date/Type/Reason Admit Date/Time Jun 21, 2019 at 17:41 Initial Consult Date 06/22/19 Type of Consultation: Urology Reason for Consultation Hemorrhagic renal cyst and retroperitoneal hemorrhage and hematoma Requesting Provider: MASHA MI MD Date/Time of Note DATE: 06/23/19 TIME: 19:19 Subjective Patient feeling much better and his pain is much less. Objective Vitals Vital Signs Date Temp Pulse Resp B/P (MAP) Pulse Ox O2 O2 Flow FiO2 Time Delivery Rate 06/23/19 108 26 174/109 97 Room Air 18:00 (130) 06/23/19 98.1 16:00 06/23/19 2.0 08:00 Intake and Output 06/22/19 06/22/19 06/23/19 1515:00 23:00 07:00 IntakeIntake Total 800 ml 370 ml 170 ml OutputOutput Total 300 ml 710 ml 390 ml BalanceBalance 500 ml -340 ml -220 ml Exam Abdomen is soft he does have mild tenderness in the left side of the abdomen. Results/Medications Result Diagram: 06/23/19 0424 06/23/19 0424 Results 24 hrs Laboratory Tests Test 06/22/19 20:50 06/23/19 04:24 Hemoglobin 10.9 L 10.7 L Hematocrit 34.2 L 33.4 L White Blood Count 9.5 Red Blood Count 3.67 L Mean Corpuscular Volume 91.0 Mean Corpuscular Hemoglobin 29.2 Mean Corpuscular Hemoglobin Concent 32.0 Red Cell Distribution Width 13.2 Platelet Count 321 Mean Platelet Volume 9.0 Immature Granulocytes % 0.300 Neutrophils % 64.2 Lymphocytes % 21.8 Monocytes % 11.3 H Eosinophils % 2.1 Basophils % 0.3 Nucleated Red Blood Cells % 0.0 Immature Granulocytes # 0.030 Neutrophils # 6.1 Lymphocytes # 2.1 Monocytes # 1.1 H Eosinophils # 0.2 Basophils # 0.0 Nucleated Red Blood Cells # 0.0 Sodium Level 136 Potassium Level 4.7 Chloride Level 96 L Carbon Dioxide Level 35 H Anion Gap 5 Blood Urea Nitrogen 14 Creatinine 1.12 Est Glomerular Filtrat Rate mL/min > 60 Glucose Level 123 Calcium Level 8.8 Phosphorus Level 3.8 Magnesium Level 2.3 Total Bilirubin 0.6 Direct Bilirubin 0.00 Indirect Bilirubin 0.6 Aspartate Amino Transf (AST/SGOT) 18 Alanine Aminotransferase (ALT/SGPT) 31 Alkaline Phosphatase 46 Total Protein 7.0 Albumin 3.7 Globulin 3.30 H Albumin/Globulin Ratio 1.12 Medications Current Medications Ondansetron HCl (Zofran Inj) 4 mg Q4H PRN IV NAUSEA AND/OR VOMITING; Start 06/21/19 at 18:30 Acetaminophen (Tylenol Tab) 650 mg Q4H PRN PO MILD PAIN(1-3)OR ELEVATED TEMP; Start 06/21/19 at 18:30 Hydromorphone HCl (Dilaudid) 1 mg Q2H PRN IV SEVERE PAIN LEVEL 7-10 Last administered on 06/23/19at 00:17; Admin Dose 1 MG; Start 06/22/19 at 06:00 Naloxone HCl (Narcan) 0.2 mg Q2M PRN IV DECREASED REPIRATORY RATE; Start 06/22/19 at 10:30 Polyethylene Glycol (Miralax) 17 gm DAILY PO Last administered on 06/23/19at 08:34; Admin Dose 17 GM; Start 06/22/19 at 11:30 Bisacodyl (Dulcolax) 5 mg DAILY PRN PO CONSTIPATION Last administered on 06/23/19at 10:34; Admin Dose 5 MG; Start 06/22/19 at 11:30 Acetaminophen/ Hydrocodone Bitart ([place] (10/325)) 1 tab Q4H PRN PO MODERATE PAIN LEVEL 4-6 Last administered on 06/23/19at 08:34; Admin Dose 1 TAB; Start 06/22/19 at 11:30 Famotidine (Pepcid) 20 mg HS PO ; Start 06/23/19 at 21:00 Sodium Chloride 1,000 ml @ 100 mls/hr Q10H IV Last administered on 06/23/19at 17:41; Admin Dose 100 MLS/HR; Start 06/23/19 at 17:30 Assessment/Plan Hospital Course (Demo Recall) This is a 38-year-old male who 3 days ago was driving to [employer] when he felt severe pain in the left side of his abdomen. He went to emergency room and had a CT scan. He was told he has ruptured cyst was given pain medications and sent home. The patient continued to have severe pain and he went back to the emergency room at [place] and was transferred to [facility]. Patient having a lot of pain and requiring a lot of pain medications. Repeat CT angiogram did show retroperitoneal hematoma but did not show any blush to suggest any active bleeding. There is no history of trauma. CT abdominal angiography: IMPRESSION: 1. 9.6 x 7.7 x 16.2 cm localized hemorrhage/hematoma inferior to the left kidney with more diffuse hemorrhage throughout the left umer renal fat and the left retroperitoneal and extraperitoneal spaces extending into the left pelvis, displacing the urinary bladder to the right. Retroperitoneal hemorrhage also extends superiorly into the posterior left upper quadrant and crosses midline, running along the anterior margin of the right psoas muscle. 2. Small amount of suspected intraperitoneal hemorrhage adjacent to the liver and in the right pericolic gutter. 3. A smaller 1.7 cm hemorrhage/hematoma medial to the larger hematoma at the level of the lower pole of the left kidney. 4. No contrast extravasation or contrast puddling to suggest active bleeding. Patient is feeling better and his pain is much less and well-controlled. He is on a regular diet and he is voiding well. His hemoglobin however has been dropping very little. We will put him on ferrous sulfate to help with his he moglobin. And Colace to avoid constipation so he will not be straining. ANTONINO WEBBER MD Jun 23, 2019 19:23
[2019-06-23] MEDS: FERROUS SULFATE (EC) 325 MG TAB PO SCH (21:25)
[2019-06-23] MEDS: DOCUSATE SODIUM 100 MG CAP PO SCH (21:25)
[2019-06-23] MEDS: FAMOTIDINE 20 MG TAB PO SCH (21:25)
[2019-06-24] VITALS (24 sets, daily range): BP systolic 107–166; BP diastolic 37–114; PULSE 79–115; RESP 10–26
[2019-06-24] MEDS: HYDROCODONE/APAP (10/325) TAB PO PRN ×4 (01:14→23:04)
[2019-06-24] MEDS: SOD CHLORIDE 0.9% 1,000 ML IV SCH ×3 (03:35→16:12)
[2019-06-24] MEDS: POLYETHYLENE GLYCOL 17 GM PACKET PO SCH (09:26)
[2019-06-24] MEDS: DOCUSATE SODIUM 100 MG CAP PO SCH ×2 (09:26→20:42)
[2019-06-24] MEDS: FERROUS SULFATE (EC) 325 MG TAB PO SCH ×2 (09:26→20:42)
[2019-06-24] MEDS: BISACODYL (EC) 5 MG TAB PO PRN (11:10)
[2019-06-24] MEDS: AMLODIPINE 10 MG TAB PO SCH (11:12)
--- NOTE | 2019-06-24 11:16 | PN ---
Date/Time of Note Date/Time of Note DATE: 06/24/19 TIME: 11:10 Assessment/Plan Lines/Catheters IV Catheter Type (from Nrsg): Peripheral IV Car in Place (from Nrs): No Assessment/Plan Chief Complaint/Hosp Course 1. Left retroperitoneal hematoma, ? etiology. No active bleeding on CT angio; hh stable, abdominal discomfort and pressure improving -discussed with Dr. Bradley> repeat ct angio when renal function improved -routine h/h, tx prn -ivf -supportive -optimize lytes -Close monitoring> no emergent surgical intervention necessary at this time 2. Anemia 2nd above -as above 3. Tachycardia 2nd above & pain, improved -ivf/prbc -pain control 4. Morbid obesity -diet and eventual exercise optimization 5. HTN -diet/med optimization -weight loss encouraged Thank you. Patient seen and examined in collaboration with Dr. Jl Bradley. Subjective 24 Hr Interval Summary Continues to feel better. Slight down drift of H&H. No overt bleeding noted. Reports improved ability to urinate. Taking less pain medication. Slight tachycardia on monitor. No fevers, chills, sob, congested cough, cp, palpitations, siddiqi, dizziness, nausea, vomiting, diarrhea, dysuria. Exam/Review of Systems Vital Signs Vitals Vital Signs Date Temp Pulse Resp B/P (MAP) Pulse Ox O2 O2 Flow FiO2 Time Delivery Rate 06/25/19 98.2 87 20 127/68 96 08:00 (87) 06/24/19 Room Air 23:00 06/23/19 2.0 08:00 Intake and Output 06/24/19 06/24/19 06/25/19 1515:00 23:00 07:00 IntakeIntake Total 800 ml 920 ml 500 ml OutputOutput Total 400 ml 1800 ml BalanceBalance 400 ml -880 ml 500 ml Exam Free Text/Dictation Constitutional: alert, oriented, obese Psych: anxiety; No confusion Head: normocephalic, atraumatic Eyes: nl conjunctiva, EOMI, PERRL; No icteric ENMT: nl lips & teeth, nl nasal mucosa & septum; No mucosa pink and moist Neck: supple, non-tender; No jvd Respiratory: normal air movement; No congested cough, No labored breathing, No wheezing Cardiovascular: regular rate and rhythm; No edema Gastrointestinal: soft, distended, tender (min without rigidity); No rebound or guarding Genitourinary - Male: nl penis, nl scrotum Musculoskeletal: nl extremities to inspection; No muscle weakness Extremities: normal pulses; No calf tenderness, No edema Neurological: nl mental status, nl speech, nl strength; No confused Skin: nl turgor; No rash or lesions, No diaphoresis Lymph: nl lymph nodes Results Result Diagram: 06/25/19 0627 06/25/19 0626 ADE MENDEZ NP Jun 24, 2019 11:16
--- NOTE | 2019-06-24 15:56 | PN ---
Date/Time of Note Date/Time of Note DATE: 06/24/19 TIME: 15:53 Assessment/Plan VTE Prophylaxis Risk score (from Ns)>0 risk: 1 SCD applied (from Ns): No SCD contraindicated: low risk/ambulating Pharmacological prophylaxis: NA/contraindicated Pharm contraindication: bleeding Lines/Catheters IV C[facility]from [facility]): Peripheral IV Urinary Cath still in place: No Assessment/Plan Hospital Course 38 m with no PMH PW severe abdominal and pelvic pain for the past several days in the setting of large retroperitoneal bleeding/ hematoma without evidence of active bleeding on CT angiogram. Seen by urology who reviewed the images with radiology . No role for embolization. Seen by general surgery and abdominal co mpartment syndrome was ruled out . Plan is to monitor vitals as well as HH and manage the pain while he will be at Bed rest with bathroom privileges. He is being followed by gen. surgery and urology. # large retroperitoneal bleeding/ hematoma without evidence of active bleeding on CT angiogram # Severe abdominopelvic pain , #Constipation #Anemia of acute blood loss , Hb slowly trending down #mild Renal insufficiency noted , 06/23 #Sinus tachycardia , rule out bleeding - transfer to med surg floor - Bed rest with bathroom privileges - monitor vitals as well as HH and manage the pain. - Bowel regimen - NS 100 cc /h and monitor Cr , Total CK normal - Plan for repeat CT angio when creatinine back to normal - Avoid heparin products and antiplatelets - Anemia work up : Iron panel , B12 and Folate levels - SCD of DVT PPX , Pepcid for GI PPX Result Diagram: 06/24/19 0501 06/24/19 0501 Results 24hrs Laboratory Tests Test 06/24/19 04:57 06/24/19 05:01 Iron Level 22 L Total Iron Binding Capacity 248 Percent Iron Saturation 9 L Vitamin B12 Level 509 Folate 12.3 White Blood Count 8.4 Red Blood Count 3.41 L Hemoglobin 9.9 L Hematocrit 30.7 L Mean Corpuscular Volume 90.0 Mean Corpuscular Hemoglobin 29.0 Mean Corpuscular Hemoglobin Concent 32.2 Red Cell Distribution Width 13.2 Platelet Count 334 Mean Platelet Volume 9.0 Immature Granulocytes % 0.400 Neutrophils % 57.8 Lymphocytes % 27.1 Monocytes % 11.3 H Eosinophils % 3.0 Basophils % 0.4 Nucleated Red Blood Cells % 0.0 Immature Granulocytes # 0.030 Neutrophils # 4.9 Lymphocytes # 2.3 Monocytes # 1.0 H Eosinophils # 0.3 Basophils # 0.0 Nucleated Red Blood Cells # 0.0 Sodium Level 138 Potassium Level 4.3 Chloride Level 101 Carbon Dioxide Level 31 Anion Gap 6 Blood Urea Nitrogen 16 Creatinine 1.00 Est Glomerular Filtrat Rate mL/min > 60 Glucose Level 107 Calcium Level 8.5 Phosphorus Level 4.4 Magnesium Level 2.2 Total Bilirubin 0.5 Direct Bilirubin 0.00 Indirect Bilirubin 0.5 Aspartate Amino Transf (AST/SGOT) 20 Alanine Aminotransferase (ALT/SGPT) 30 Alkaline Phosphatase 46 Creatine Kinase 42 Total Protein 6.5 Albumin 3.4 Globulin 3.10 Albumin/Globulin Ratio 1.09 Subjective 24 Hr Interval Summary Free Text/Dictation Pain is improving , urinating wo complications Exam/Review of Systems Exam Vitals Vital Signs Date Temp Pulse Resp B/P (MAP) Pulse Ox O2 O2 Flow FiO2 Time Delivery Rate 06/24/19 88 17 142/89 14:00 (106) 06/24/19 97.8 12:00 06/24/19 96 11:00 06/24/19 Room Air 09:00 06/23/19 2.0 08:00 Intake and Output 06/23/19 06/23/19 06/24/19 1515:00 23:00 07:00 IntakeIntake Total 940 ml 900 ml OutputOutput Total 425 ml 1170 ml 400 ml BalanceBalance -425 ml -230 ml 500 ml Exam Constitutional: alert, oriented, well developed Head: normocephalic, atraumatic Eyes: nl conjunctiva, EOMI, nl lids, nl sclera, PERRL ENMT: nl external ears & nose, nl lips & teeth, nl nasal mucosa & septum Neck: supple, non-tender Respiratory: clear to auscultation, normal air movement Cardiovascular: regular rate and rhythm, nl pulses Gastrointestinal: soft, , distended, firm, mass, mildly tender in LLQ no rebound and no guarding Extremities: normal pulses Neurological: FLOAT TENDER II-XII intact, nl mental status, nl speech, nl strength Results Results 24hrs Laboratory Tests Test 06/24/19 04:57 06/24/19 05:01 Iron Level 22 L Total Iron Binding Capacity 248 Percent Iron Saturation 9 L Vitamin B12 Level 509 Folate 12.3 White Blood Count 8.4 Red Blood Count 3.41 L Hemoglobin 9.9 L Hematocrit 30.7 L Mean Corpuscular Volume 90.0 Mean Corpuscular Hemoglobin 29.0 Mean Corpuscular Hemoglobin Concent 32.2 Red Cell Distribution Width 13.2 Platelet Count 334 Mean Platelet Volume 9.0 Immature Granulocytes % 0.400 Neutrophils % 57.8 Lymphocytes % 27.1 Monocytes % 11.3 H Eosinophils % 3.0 Basophils % 0.4 Nucleated Red Blood Cells % 0.0 Immature Granulocytes # 0.030 Neutrophils # 4.9 Lymphocytes # 2.3 Monocytes # 1.0 H Eosinophils # 0.3 Basophils # 0.0 Nucleated Red Blood Cells # 0.0 Sodium Level 138 Potassium Level 4.3 Chloride Level 101 Carbon Dioxide Level 31 Anion Gap 6 Blood Urea Nitrogen 16 Creatinine 1.00 Est Glomerular Filtrat Rate mL/min > 60 Glucose Level 107 Calcium Level 8.5 Phosphorus Level 4.4 Magnesium Level 2.2 Total Bilirubin 0.5 Direct Bilirubin 0.00 Indirect Bilirubin 0.5 Aspartate Amino Transf (AST/SGOT) 20 Alanine Aminotransferase (ALT/SGPT) 30 Alkaline Phosphatase 46 Creatine Kinase 42 Total Protein 6.5 Albumin 3.4 Globulin 3.10 Albumin/Globulin Ratio 1.09 Medications Medication Current Medications Ondansetron HCl (Zofran Inj) 4 mg Q4H PRN IV NAUSEA AND/OR VOMITING; Start 06/21/19 at 18:30 Acetaminophen (Tylenol Tab) 650 mg Q4H PRN PO MILD PAIN(1-3)OR ELEVATED TEMP; Start 06/21/19 at 18:30 Hydromorphone HCl (Dilaudid) 1 mg Q2H PRN IV SEVERE PAIN LEVEL 7-10 Last admin istered on 06/23/19at 00:17; Admin Dose 1 MG; Start 06/22/19 at 06:00 Naloxone HCl (Narcan) 0.2 mg Q2M PRN IV DECREASED REPIRATORY RATE; Start 06/22/19 at 10:30 Polyethylene Glycol (Miralax) 17 gm DAILY PO Last administered on 06/24/19at 09:26; Admin Dose 17 GM; Start 06/22/19 at 11:30 Bisacodyl (Dulcolax) 5 mg DAILY PRN PO CONSTIPATION Last administered on 06/24/19at 11:10; Admin Dose 5 MG; Start 06/22/19 at 11:30 Acetaminophen/ Hydrocodone Bitart ([place] (10)) 1 tab Q4H PRN PO MODERATE PAIN LEVEL 4-6 Last administered on 06/24/19 11:10; Admin Dose 1 TAB; Start 06/22/19 at 11:30 Famotidine (Pepcid) 20 mg HS PO Last administered on 06/23/19 21:25; Admin Dose 20 MG; Start 06/23/19 at 21:00 Sodium Chloride 1,000 ml @ 100 mls/hr Q10H IV Last administered on 06/24/19 03:35; Admin Dose 100 MLS/HR; Start 06/23/19 at 17:30 Ferrous Sulfate (Ferrous Sulfate (Ec)) 325 mg BID PO Last administered on 06/24/19 09:26; Admin Dose 325 MG; Start 06/23/19 at 21:00 Docusate Sodium (Colace) 100 mg BID PO Last administered on 06/24/19 09:26; Admin Dose 100 MG; Start 06/23/19 at 21:00 Amlodipine Besylate (Norvasc) 10 mg DAILY PO Last administered on 06/24/19 11:12; Admin Dose 10 MG; Start 06/24/19 at 11:00 KODAK CHASE MD Jun 24, 2019 15:56
[2019-06-24] MEDS: FAMOTIDINE 20 MG TAB PO SCH (20:42)
--- NOTE | 2019-06-24 22:01 | CONS ---
Consult Date/Type/Reason Admit Date/Time Jun 21, 2019 at 17:41 Initial Consult Date 06/22/19 Type of Consultation: Urology Reason for Consultation Hemorrhagic left renal cyst and retroperitoneal hematoma Requesting Provider: MASHA MI MD Date/Time of Note DATE: 06/24/19 TIME: 21:58 Subjective Patient states that he is feeling better and that his pain is 3-4 out of 10. He did have a bowel movement and he is voiding well Objective Vitals Vital Signs Date Temp Pulse Resp B/P (MAP) Pulse Ox O2 O2 Flow FiO2 Time Delivery Rate 06/24/19 98.3 99 20 121/86 95 Room Air 20:00 (98) 06/23/19 2.0 08:00 Intake and Output 06/23/19 06/23/19 06/24/19 1515:00 23:00 07:00 IntakeIntake Total 940 ml 900 ml OutputOutput Total 425 ml 1170 ml 400 ml BalanceBalance -425 ml -230 ml 500 ml Exam The abdomen is soft he does have tenderness in the left side. Results/Medications Result Diagram: 06/24/19 0501 06/24/19 0501 Results 24 hrs Laboratory Tests Test 06/24/19 04:57 06/24/19 05:01 Iron Level 22 L Total Iron Binding Capacity 248 Percent Iron Saturation 9 L Vitamin B12 Level 509 Folate 12.3 White Blood Count 8.4 Red Blood Count 3.41 L Hemoglobin 9.9 L Hematocrit 30.7 L Mean Corpuscular Volume 90.0 Mean Corpuscular Hemoglobin 29.0 Mean Corpuscular Hemoglobin Concent 32.2 Red Cell Distribution Width 13.2 Platelet Count 334 Mean Platelet Volume 9.0 Immature Granulocytes % 0.400 Neutrophils % 57.8 Lymphocytes % 27.1 Monocytes % 11.3 H Eosinophils % 3.0 Basophils % 0.4 Nucleated Red Blood Cells % 0.0 Immature Granulocytes # 0.030 Neutrophils # 4.9 Lymphocytes # 2.3 Monocytes # 1.0 H Eosinophils # 0.3 Basophils # 0.0 Nucleated Red Blood Cells # 0.0 Sodium Level 138 Potassium Level 4.3 Chloride Level 101 Carbon Dioxide Level 31 Anion Gap 6 Blood Urea Nitrogen 16 Creatinine 1.00 Est Glomerular Filtrat Rate mL/min > 60 Glucose Level 107 Calcium Level 8.5 Phosphorus Level 4.4 Magnesium Level 2.2 Total Bilirubin 0.5 Direct Bilirubin 0.00 Indirect Bilirubin 0.5 Aspartate Amino Transf (AST/SGOT) 20 Alanine Aminotransferase (ALT/SGPT) 30 Alkaline Phosphatase 46 Creatine Kinase 42 Total Protein 6.5 Albumin 3.4 Globulin 3.10 Albumin/Globulin Ratio 1.09 Medications Current Medications Ondansetron HCl (Zofran Inj) 4 mg Q4H PRN IV NAUSEA AND/OR VOMITING; Start 06/21/19 at 18:30 Acetaminophen (Tylenol Tab) 650 mg Q4H PRN PO MILD PAIN(1-3)OR ELEVATED TEMP; Start 06/21/19 at 18:30 Hydromorphone HCl (Dilaudid) 1 mg Q2H PRN IV SEVERE PAIN LEVEL 7-10 Last administered on 06/23/19 00:17; Admin Dose 1 MG; Start 06/22/19 at 06:00 Naloxone HCl (Narcan) 0.2 mg Q2M PRN IV DECREASED REPIRATORY RATE; Start 06/22/19 at 10:30 Polyethylene Glycol (Miralax) 17 gm DAILY PO Last administered on 06/24/19 09:26; Admin Dose 17 GM; Start 06/22/19 at 11:30 Bisacodyl (Dulcolax) 5 mg DAILY PRN PO CONSTIPATION Last administered on 06/24/19 11:10; Admin Dose 5 MG; Start 06/22/19 at 11:30 Acetaminophen/ Hydrocodone Bitart ([place] (10/325)) 1 tab Q4H PRN PO MODERATE PAIN LEVEL 4-6 Last administered on 06/24/19 18:21; Admin Dose 1 TAB; Start 06/22/19 at 11:30 Famotidine (Pepcid) 20 mg HS PO Last administered on 06/24/19 20:42; Admin Dos e 20 MG; Start 06/23/19 at 21:00 Sodium Chloride 1,000 ml @ 100 mls/hr Q10H IV Last administered on 06/24/19 16:12; Admin Dose 100 MLS/HR; Start 06/23/19 at 17:30 Ferrous Sulfate (Ferrous Sulfate (Ec)) 325 mg BID PO Last administered on 06/24/19 20:42; Admin Dose 325 MG; Start 06/23/19 at 21:00 Docusate Sodium (Colace) 100 mg BID PO Last administered on 8/14/19at 20:42; Admin Dose 100 MG; Start 06/23/19 at 21:00 Amlodipine Besylate (Norvasc) 10 mg DAILY PO Last administered on 06/24/19at 1 1:12; Admin Dose 10 MG; Start 06/24/19 at 11:00 Ferric Sodium Gluconate Complex 125 mg/Sodium Chloride 110 ml @ 110 mls/hr DAILY@1300 IVPB ; Start 06/25/19 at 13:00; Stop 06/29/19 at 13:59 Assessment/Plan Hospital Course (Demo Recall) This is a 38-year-old male who 3 days ago was driving to [employer] when he felt severe pain in the left side of his abdomen. He went to emergency room and had a CT scan. He was told he has ruptured cyst was given pain medications and sent home. The patient continued to have severe pain and he went back to the emergency room at [facility] and was transferred to [facility]. Patient having a lot of pain and requiring a lot of pain medications. Repeat CT angiogram did show retroperitoneal hematoma but did not show any blush to suggest any active bleeding. There is no history of trauma. CT abdominal angiography: IMPRESSION: 1. 9.6 x 7.7 x 16.2 cm localized hemorrhage/hematoma inferior to the left kidney with more diffuse hemorrhage throughout the left umer renal fat and the left retroperitoneal and extraperitoneal spaces extending into the left pelvis, displacing the urinary bladder to the right. Retroperitoneal hemorrhage also extends superiorly into the posterior left upper quadrant and crosses midline, running along the anterior margin of the right psoas muscle. 2. Small amount of suspected intraperitoneal hemorrhage adjacent to the liver and in the right pericolic gutter. 3. A smaller 1.7 cm hemorrhage/hematoma medial to the larger hematoma at the level of the lower pole of the left kidney. 4. No contrast extravasation or contrast puddling to suggest active bleeding. Patient is feeling better and his pain is much less and well-controlled. He is on a regular diet . His hemoglobin however continues to drop and today is 9.9. His pain is 3-4 out of 10. He had a bowel movement and he is voiding well. I think the patient should remain in the hospital until we see that his hemoglobin is stable and going up rather than keep going down. And after discharge he should not do any strenuous activity he should be resting for about 6 weeks. BEJJANI,ANTONINO K MD Jun 24, 2019 22:01
[2019-06-25 02:38] VITALS: BP 112/57; PULSE 88; RESP 16
[2019-06-25] MEDS: HYDROCODONE/APAP (10/325) TAB PO PRN ×3 (03:03→23:48)
[2019-06-25] MEDS: SOD CHLORIDE 0.9% 1,000 ML IV SCH ×3 (03:08→19:30)
[2019-06-25 08:00] VITALS: BP 127/68; PULSE 87; RESP 20
[2019-06-25] MEDS: DOCUSATE SODIUM 100 MG CAP PO SCH ×2 (09:50→21:54)
[2019-06-25] MEDS: POLYETHYLENE GLYCOL 17 GM PACKET PO SCH (09:50)
[2019-06-25] MEDS: FERROUS SULFATE (EC) 325 MG TAB PO SCH ×2 (09:51→21:54)
[2019-06-25] MEDS: AMLODIPINE 10 MG TAB PO SCH (09:53)
--- NOTE | 2019-06-25 12:24 | PN ---
Date/Time of Note Date/Time of Note DATE: 06/25/19 TIME: 12:20 Assessment/Plan Lines/Catheters IV Catheter Type (from Nrsg): Peripheral IV Car in Place (from Nrs): No Assessment/Plan Chief Complaint/Hosp Course 1. Left retroperitoneal hematoma, ? etiology. No active bleeding on CT angio; hh stable, abdominal discomfort and pressure improving -discussed with Dr. Bradley> repeat ct angio when renal function improved> pending today -continue routine h/h, tx prn -supportive -optimize lytes -Close monitoring> no emergent surgical intervention necessary at this time 2. Anemia 2nd above -as above 3. Tachycardia 2nd above & pain, improved -ivf/prbc -pain control 4. Morbid obesity -diet and eventual exercise optimization 5. HTN -diet/med optimization -weight loss encouraged Thank you. Patient seen and examined in collaboration with Dr. Jl Bradley. Subjective 24 Hr Interval Summary Feels well. Abdominal pressure when upright, but improved. HH downtick. No fevers, chills, sob, congested cough, cp, palpitations, siddiqi, dizziness, n/v/d/dysuria. Exam/Review of Systems Vital Signs Vitals Vital Signs Date Temp Pulse Resp B/P (MAP) Pulse Ox O2 O2 Flow FiO2 Time Delivery Rate 06/25/19 98.2 87 20 127/68 96 08:00 (87) 06/24/19 Room Air 23:00 06/23/19 2.0 08:00 Intake and Output 06/24/19 06/24/19 06/25/19 1515:00 23:00 07:00 IntakeIntake Total 800 ml 920 ml 500 ml OutputOutput Total 400 ml 1800 ml BalanceBalance 400 ml -880 ml 500 ml Exam Free Text/Dictation Constitutional: alert, oriented, obese Psych: anxiety; No confusion Head: normocephalic, atraumatic Eyes: nl conjunctiva, EOMI, PERRL; No icteric ENMT: nl lips & teeth, nl nasal mucosa & septum; No mucosa pink and moist Neck: supple, non-tender; No jvd Respiratory: normal air movement; No congested cough, No labored breathing, No wheezing Cardiovascular: regular rate and rhythm; No edema Gastrointestinal: soft, distended (min), tender (min without rigidity); No rebound or guarding Genitourinary - Male: nl penis, nl scrotum Musculoskeletal: nl extremities to inspection; No muscle weakness Extremities: normal pulses; No calf tenderness, No edema Neurological: nl mental status, nl speech, nl strength; No confused Skin: nl turgor; No rash or lesions, No diaphoresis Lymph: nl lymph nodes Results Result Diagram: 06/25/19 0627 06/25/19 0626 ADE MENDEZ NP Jun 25, 2019 12:24
[2019-06-25] MEDS ORDERED: IOHEXOL 100 ML ONE (12:43)
[2019-06-25] MEDS ORDERED: SOD CHLORIDE 0.9% 100 ML ONE (12:43)
[2019-06-25 14:00] VITALS: BP 133/73; PULSE 83; RESP 16
[2019-06-25] MEDS: SOD FERRIC GLUC COMPLX 125 MG in SOD CHLORIDE 0.9% 100 ML IVPB SCH (14:36)
--- NOTE | 2019-06-25 19:12 | PN ---
Date/Time of Note Date/Time of Note DATE: 06/25/19 TIME: 19:05 Assessment/Plan VTE Prophylaxis Risk score (from Ns)>0 risk: 1 SCD applied (from Ns): No SCD contraindicated: low risk/ambulating Pharmacological prophylaxis: NA/contraindicated Pharm contraindication: bleeding Lines/Catheters IV Catheter Type (from [facility]): Peripheral IV Urinary Cath still in place: No Assessment/Plan Hospital Course 38 m with no PMH PW severe abdominal and pelvic pain for the past several days in the setting of large retroperitoneal bleeding/ hematoma without evidence of active bleeding on CT angiogram. Seen by urology who reviewed the images with radiology . No role for embolization. Seen by general surgery and abdominal co mpartment syndrome was ruled out . Plan is to monitor vitals as well as HH and manage the pain while he will be at Bed rest with bathroom privileges. He is being followed by gen. surgery and urology. Repeat CT angiogram of the abdomen and pelvis did not show evidence of active bleeding . The retroperitoneal hematoma was reported to be grossly unchanged in size . However , it was reported as large as 10.0 x 9.8 x 16 which is slightly larger than 9.6 x 7.7 x 16.2 reported on the first CT . Iron panel was consistent with iron deficiency # large retroperitoneal bleeding/ hematoma without evidence of active bleeding on CT angiogram # Severe abdominopelvic pain , improving and requiring less of narcotics #Constipation #Anemia of acute blood loss , Hb slowly trending down #mild Renal insufficiency noted , 06/23 which responded well to IVF #Sinus tachycardia , rule out bleeding #Multiple Cysts in the Kidney , recommend genetic work up for PKD #Mild hydronephrosis of the left kidney , stable , in the setting of mass effect of the hematoma - Bed rest with bathroom privileges - monitor vitals as well as HH and manage the pain. - Bowel regimen - NS 100 cc /h and monitor Cr , Total CK normal - Avoid heparin products and antiplatelets -IV Iron given Iron deficiency, will need GI work up as outpatient to rule out chronic GI blood loss - SCD for DVT PPX , Pepcid for GI PPX Result Diagram: 06/25/1927 06/25/19 0626 Results 24hrs Laboratory Tests Test 06/25/19 06:26 06/25/19 06:27 Sodium Level 137 Potassium Level 4.6 Chloride Level 102 Carbon Dioxide Level 29 Anion Gap 6 Blood Urea Nitrogen 16 Creatinine 0.97 Est Glomerular Filtrat Rate mL/min > 60 Glucose Level 98 Calcium Level 8.5 Phosphorus Level 3.9 Magnesium Level 2.2 White Blood Count 8.3 Red Blood Count 3.24 L Hemoglobin 9.3 L Hematocrit 29.1 L Mean Corpuscular Volume 89.8 Mean Corpuscular Hemoglobin 28.7 L Mean Corpuscular Hemoglobin Concent 32.0 Red Cell Distribution Width 13.2 Platelet Count 326 Mean Platelet Volume 9.0 Immature Granulocytes % 0.700 H Neutrophils % 58.0 Lymphocytes % 26.2 Monocytes % 11.1 H Eosinophils % 3.4 Basophils % 0.6 Nucleated Red Blood Cells % 0.0 Immature Granulocytes # 0.060 H Neutrophils # 4.8 Lymphocytes # 2.2 Monocytes # 0.9 Eosinophils # 0.3 Basophils # 0.1 Nucleated Red Blood Cells # 0.0 Subjective 24 Hr Interval Summary Free Text/Dictation Pain has significantly improved . Exam/Review of Systems Exam Vitals Vital Signs Date Temp Pulse Resp B/P (MAP) Pulse Ox O2 O2 Flow FiO2 Time Delivery Rate 06/25/19 99.0 83 16 133/73 96 14:00 (93) 06/24/19 Room Air 23:00 06/23/19 2.0 08:00 Intake and Output 06/24/19 06/24/19 06/25/19 1515:00 23:00 07:00 IntakeIntake Total 800 ml 920 ml 500 ml OutputOutput Total 400 ml 1800 ml BalanceBalance 400 ml -880 ml 500 ml Exam Constitutional: alert, oriented, well developed Head: normocephalic, atraumatic Eyes: nl conjunctiva, EOMI, nl lids, nl sclera, PERRL ENMT: nl external ears & nose, nl lips & teeth, nl nasal mucosa & septum Neck: supple, non-tender Respiratory: clear to auscultation, normal air movement Cardiovascular: regular rate and rhythm, nl pulses Gastrointestinal: soft, , distended, firm, mass, mildly tender in LLQ no rebound and no guarding Extremities: normal pulses Neurological: CORE ANALYSIS OPERATOR II-XII intact, nl mental status, nl speech, nl strength Results Results 24hrs Laboratory Tests Test 06/25/19 06:26 06/25/19 06:27 Sodium Level 137 Potassium Level 4.6 Chloride Level 102 Carbon Dioxide Level 29 Anion Gap 6 Blood Urea Nitrogen 16 Creatinine 0.97 Est Glomerular Filtrat Rate mL/min > 60 Glucose Level 98 Calcium Level 8.5 Phosphorus Level 3.9 Magnesium Level 2.2 White Blood Count 8.3 Red Blood Count 3.24 L Hemoglobin 9.3 L Hematocrit 29.1 L Mean Corpuscular Volume 89.8 Mean Corpuscular Hemoglobin 28.7 L Mean Corpuscular Hemoglobin Concent 32.0 Red Cell Distribution Width 13.2 Platelet Count 326 Mean Platelet Volume 9.0 Immature Granulocytes % 0.700 H Neutrophils % 58.0 Lymphocytes % 26.2 Monocytes % 11.1 H Eosinophils % 3.4 Basophils % 0.6 Nucleated Red Blood Cells % 0.0 Immature Granulocytes # 0.060 H Neutrophils # 4.8 Lymphocytes # 2.2 Monocytes # 0.9 Eosinophils # 0.3 Basophils # 0.1 Nucleated Red Blood Cells # 0.0 Medications Medication Current Medications Ondansetron HCl (Zofran Inj) 4 mg Q4H PRN IV NAUSEA AND/OR VOMITING; Start 06/21/19 at 18:30 Acetaminophen (Tylenol Tab) 650 mg Q4H PRN PO MILD PAIN(1-3)OR ELEVATED TEMP; Start 06/21/19 at 18:30 Hydromorphone HCl (Dilaudid) 1 mg Q2H PRN IV SEVERE PAIN LEVEL 7-10 Last administered on 06/23/19at 00:17; Admin Dose 1 MG; Start 06/22/19 at 06:00 Naloxone HCl (Narcan) 0.2 mg Q2M PRN IV DECREASED REPIRATORY RATE; Start 06/22/19 at 10:30 Polyethylene Glycol (Miralax) 17 gm DAILY PO Last administered on 06/25/19at 09:50; Admin Dose 17 GM; Start 06/22/19 at 11:30 Bisacodyl (Dulcolax) 5 mg DAILY PRN PO CONSTIPATION Last administered on 06/24/19at 11:10; Admin Dose 5 MG; Start 06/22/19 at 11:30 Acetaminophen/ Hydrocodone Bitart ([place] (10/325)) 1 tab Q4H PRN PO MODERATE PAIN LEVEL 4-6 Last administered on 06/25/19at 17:23; Admin Dose 1 TAB; Start 8/12/19 at 11:30 Famotidine (Pepcid) 20 mg HS PO Last administered on 06/24/19 20:42; Admin Dose 20 MG; Start 06/23/19 at 21:00 Sodium Chloride 1,000 ml @ 100 mls/hr Q10H IV Last administered on 06/25/19 14:38; Admin Dose 100 MLS/HR; Start 06/23/19 at 17:30 Ferrous Sulfate (Ferrous Sulfate (Ec)) 325 mg BID PO Last administered on 06/25/19 09:51; Admin Dose 325 MG; Start 06/23/19 at 21:00 Docusate Sodium (Colace) 100 mg BID PO Last administered on 06/25/19 09:50; Admin Dose 100 MG; Start 06/23/19 at 21:00 Amlodipine Besylate (Norvasc) 10 mg DAILY PO Last administered on 06/25/19 09:53; Admin Dose 10 MG; Start 06/24/19 at 11:00 Ferric Sodium Gluconate Complex 125 mg/Sodium Chloride 110 ml @ 110 mls/hr DAILY@1300 IVPB Last administered on 06/25/19 14:36; Admin Dose 110 MLS/HR; Start 06/25/19 at 13:00; Stop 06/29/19 at 13:59 KODAK CHASE MD Jun 25, 2019 19:12
[2019-06-25 20:00] VITALS: BP 130/65; PULSE 76; RESP 18
[2019-06-25] MEDS: FAMOTIDINE 20 MG TAB PO SCH (21:54)
[2019-06-26 02:00] VITALS: BP 122/72; PULSE 96; RESP 17
[2019-06-26] MEDS: SOD CHLORIDE 0.9% 1,000 ML IV SCH ×2 (02:05→05:28)
[2019-06-26 07:35] VITALS: BP 140/79; PULSE 88; RESP 16
--- NOTE | 2019-06-26 08:42 | CONS ---
Consult Date/Type/Reason Admit Date/Time Jun 21, 2019 at 17:41 Initial Consult Date 06/22/19 Type of Consultation: Urology Reason for Consultation Retroperitoneal hematoma and hemorrhagic renal cyst Requesting Provider: MASHA MI MD Date/Time of Note DATE: 06/26/19 TIME: 08:38 Subjective Patient is feeling better and his pain is about 4 out of 10. He has good bowel movements and he is voiding well without any dysuria or hematuria Objective Vitals Vital Signs Date Temp Pulse Resp B/P (MAP) Pulse Ox O2 O2 Flow FiO2 Time Delivery Rate 06/26/19 98.7 88 16 140/79 97 Room Air 07:35 (99) 06/23/19 2.0 08:00 Intake and Output 06/25/19 06/25/19 06/26/19 1414:59 22:59 06:59 IntakeIntake Total 910 ml 600 ml 1200 ml BalanceBalance 910 ml 600 ml 1200 ml Exam The abdomen is soft. There is no tenderness. Results/Medications Result Diagram: 06/26/19 0500 06/26/19 0500 Results 24 hrs Laboratory Tests Test 06/26/19 05:00 06/26/19 06:31 White Blood Count 9.8 Red Blood Count 3.59 L Hemoglobin 10.2 L Hematocrit 31.9 L Mean Corpuscular Volume 88.9 Mean Corpuscular Hemoglobin 28.4 L Mean Corpuscular Hemoglobin Concent 32.0 Red Cell Distribution Width 13.3 Platelet Count 377 Mean Platelet Volume 8.8 Immature Granulocytes % 1.300 H Neutrophils % 63.4 Lymphocytes % 20.7 Monocytes % 10.9 Eosinophils % 3.0 Basophils % 0.7 Nucleated Red Blood Cells % 0.3 H Immature Granulocytes # 0.130 H Neutrophils # 6.2 Lymphocytes # 2.0 Monocytes # 1.1 H Eosinophils # 0.3 Basophils # 0.1 Nucleated Red Blood Cells # 0.0 Sodium Level 138 Potassium Level 4.0 Chloride Level 102 Carbon Dioxide Level 29 Anion Gap 7 Blood Urea Nitrogen 13 Creatinine 0.92 Est Glomerular Filtrat Rate mL/min > 60 Glucose Level 109 Calcium Level 8.7 Lab Scanned Report REFERENCE LAB Medications Current Medications Ondansetron HCl (Zofran Inj) 4 mg Q4H PRN IV NAUSEA AND/OR VOMITING; Start 06/21/19 at 18:30 Acetaminophen (Tylenol Tab) 650 mg Q4H PRN PO MILD PAIN(1-3)OR ELEVATED TEMP; Start 06/21/19 at 18:30 Hydromorphone HCl (Dilaudid) 1 mg Q2H PRN IV SEVERE PAIN LEVEL 7-10 Last administered on 06/23/19 00:17; Admin Dose 1 MG; Start 06/22/19 at 06:00 Naloxone HCl (Narcan) 0.2 mg Q2M PRN IV DECREASED REPIRATORY RATE; Start 06/22/19 at 10:30 Polyethylene Glycol (Miralax) 17 gm DAILY PO Last administered on 06/25/19 09:50; Admin Dose 17 GM; Start 06/22/19 at 11:30 Bisacodyl (Dulcolax) 5 mg DAILY PRN PO CONSTIPATION Last administered on 06/24 11:10; Admin Dose 5 MG; Start 06/22/19 at 11:30 Acetaminophen/ Hydrocodone Bitart ([place] (10/325)) 1 tab Q4H PRN PO MODERATE PAIN LEVEL 4-6 Last administered on 06/25/19 23:48; Admin Dose 1 TAB; Start 06/22/19 at 11:30 Famotidine (Pepcid) 20 mg HS PO Last administered on 06/25/19 21:54; Admin Dose 20 MG; Start 06/23/19 at 21:00 Sodium Chloride 1,000 ml @ 100 mls/hr Q10H IV Last administered on 06/26/19 02:05; Admin Dose 100 MLS/HR; Start 06/23/19 at 17:30 Ferrous Sulfate (Ferrous Sulfate (Ec)) 325 mg BID PO Last administered on 06/25/19 21:54; Admin Dose 325 MG; Start 06/23/19 at 21:00 Docusate Sodium (Colace) 100 mg BID PO Last administered on 06/25/19 21:54; Admin Dose 100 MG; Start 06/23/19 at 21:00 Amlodipine Besylate (Norvasc) 10 mg DAILY PO Last administered on 06/25/19 09:53; Admin Dose 10 MG; Start 06/24/19 at 11:00 Ferric Sodium Gluconate Complex 125 mg/Sodium Chloride 110 ml @ 110 mls/hr DAILY@1300 IVPB Last administered on 06/25/19 14:36; Admin Dose 110 MLS/HR; Start 06/25/19 at 13:00; Stop 06/29/19 at 13:[address] angiogram showed: Large retroperitoneal hematoma is grossly unchanged. No evidence of active extravasation. Multiple bilateral cystic structures throughout the kidneys, some of which appear complex and hyperdense. Further evaluation with a noncontrast CT is recommended to rule out possible solid associated masses. Mild left-sided hydronephrosis, unchanged. Left lower lobe consolidation and small left pleural effusion. Assessment/Plan Hospital Course (Demo Recall) This is a 38-year-old male who 3 days prior to admission was driving to [employer] when he felt severe pain in the left side of his abdomen. He went to emergency room and had a CT scan. He was told he has ruptured cyst was given pain medications and sent home. The patient continued to have severe pain and he went back to the emergency room at [facility] and was transferred to [facility]. Patient having a lot of pain and requiring a lot of pain medications. Repeat CT angiogram did show retroperitoneal hematoma but did not show any blush to suggest any active bleeding. There is no history of trauma. CT abdominal angiography: IMPRESSION: 1. 9.6 x 7.7 x 16.2 cm localized hemorrhage/hematoma inferior to the left kidney with more diffuse hemorrhage throughout the left umer renal fat and the left retroperitoneal and extraperitoneal spaces extending into the left pelvis, displacing the urinary bladder to the right. Retroperitoneal hemorrhage also extends superiorly into the posterior left upper quadrant and crosses midline, running along the anterior margin of the right psoas muscle. 2. Small amount of suspected intraperitoneal hemorrhage adjacent to the liver and in the right pericolic gutter. 3. A smaller 1.7 cm hemorrhage/hematoma medial to the larger hematoma at the level of the lower pole of the left kidney. 4. No contrast extravasation or contrast puddling to suggest active bleeding. Patient is feeling better and his pain is less. Pain is 4 out of 10. He has no nausea or vomiting. He is voiding well and there is no dysuria or hematuria. He has bowel movements. His hemoglobin has stabilized its up to 10.2 now. He had a repeated abdominal CT angiogram and that showed: Large retroperitoneal hematoma is grossly unchanged. No evidence of active extravasation. Multiple bilateral cystic structures throughout the kidneys, some of which appear complex and hyperdense. Further evaluation with a noncontrast CT is recommended to rule out possible solid associated masses. Mild left-sided hydronephrosis, unchanged. Left lower lobe consolidation and small left pleural effusion. Impression: Stable retroperitoneal hematoma Plan continue to give him iron pills and limited activity. No strenuous activity. Continue to monitor his H&H. ANTONINO WEBBER MD Jun 26, 2019 08:42
[2019-06-26] MEDS: HYDROCODONE/APAP (10/325) TAB PO PRN (09:35)
[2019-06-26] MEDS: AMLODIPINE 10 MG TAB PO SCH (09:36)
[2019-06-26] MEDS: POLYETHYLENE GLYCOL 17 GM PACKET PO SCH (09:36)
[2019-06-26] MEDS: DOCUSATE SODIUM 100 MG CAP PO SCH (09:36)
[2019-06-26] MEDS: FERROUS SULFATE (EC) 325 MG TAB PO SCH (09:36)
--- NOTE | 2019-06-26 09:55 | PN ---
Date/Time of Note Date/Time of Note DATE: 06/26/19 TIME: 09:48 Assessment/Plan Lines/Catheters IV Catheter Type (from Nrs): Peripheral IV Car in Place (from Nrs): No Assessment/Plan Chief Complaint/Hosp Course 1. Left retroperitoneal hematoma, ? etiology. No active bleeding on CT angio; hh stable, abdominal discomfort and pressure improving -no surgical intervention -supportive -optimize lytes 2. Anemia 2nd above -as above 3. Tachycardia 2nd above & pain, improved -ivf/prbc -pain control 4. Morbid obesity -diet and eventual exercise optimization 5. HTN -diet/med optimization -weight loss encouraged Thank you, Subjective 24 Hr Interval Summary Wants go home. Feels well. Abdominal pressure when upright, but improved. Hg stable. No fevers, chills, sob, congested cough, cp, palpitations, siddiqi, dizziness, nausea, vomiting, dysuria. Exam/Review of Systems Vital Signs Vitals Vital Signs Date Temp Pulse Resp B/P (MAP) Pulse Ox O2 O2 Flow FiO2 Time Delivery Rate 06/26/19 98.7 88 16 140/79 97 Room Air 07:35 (99) 06/23/19 2.0 08:00 Intake and Output 06/25/19 06/25/19 06/26/19 1515:00 23:00 07:00 IntakeIntake Total 910 ml 600 ml 1200 ml BalanceBalance 910 ml 600 ml 1200 ml Exam Free Text/Dictation Constitutional: alert, oriented, obese Psych: anxiety; No confusion Head: normocephalic, atraumatic Eyes: nl conjunctiva, EOMI, PERRL; No icteric ENMT: nl lips & teeth, nl nasal mucosa & septum; No mucosa pink and moist Neck: supple, non-tender; No jvd Respiratory: normal air movement; No congested cough, No labored breathing, No wheezing Cardiovascular: regular rate and rhythm; No edema Gastrointestinal: soft, distended (min), tender (min without rigidity); No rebound or guarding Genitourinary - Male: nl penis, nl scrotum Musculoskeletal: nl extremities to inspection; No muscle weakness Extremities: normal pulses; No calf tenderness, No edema Neurological: nl mental status, nl speech, nl strength; No confused Skin: nl turgor; No rash or lesions, No diaphoresis Lymph: nl lymph nodes Results Free Text/Dictation CT: Large retroperitoneal hematoma is grossly unchanged. No evidence of active extravasation. Multiple bilateral cystic structures throughout the kidneys, some of which appear complex and hyperdense. Further evaluation with a noncontrast CT is recommended to rule out possible solid associated masses. Mild left-sided hydronephrosis, unchanged. Left lower lobe consolidation and small left pleural effusion. Result Diagram: 06/26/19 0500 06/26/19 0500 CHIP DYER MD Jun 26, 2019 09:55
[2019-06-26] MEDS: SOD FERRIC GLUC COMPLX 125 MG in SOD CHLORIDE 0.9% 100 ML IVPB SCH (12:32)
--- NOTE | 2019-06-26 13:05 | PDOCDIS ---
Discharge Instructions DIAGNOSIS Discharge Diagnosis * Retroperitoneal hemorrhage/hematoma. * Anemia of blood loss * Iron deficiency. * Multiple cysts of the Kidney , rule out Polycystic kidney disease (PKD), rule out Solid mass * At risk for sleep apnea * Hypertension * Obesity CONDITION [id number] Patient Condition: [address] Stable HOME CARE INSTRUCTIONS: [id number] Diet Instructions: Miracle Reduced Sodium ACTIVITY: [id number] Activity Restrictions: [id number] Avoid heavy lifting ( ) Do not operate Machinery Do not operate Power Tool Avoid Heavy Housework FOLLOW UP/APPOINTMENTS Follow-up Plan PCP in 7 days : * Follow up with Hemoglobin and Hematocrit * Referral to sleep studies to rule out/in sleep apnea * Referral to tag machine operator to rule out PKD * Referral to GI for Iron deficiency Follow up with urology Dr. Anant Landis for retroperitoneal hematoma and renal cysts in 7 days REFERRALS [id number] Referring Provider: CHIP Still MD OTHER ORDERS: Other Orders: Home health for daily blood draws (Hemoglobin and Hematocrit ) for 7 days to be reported to the PCP and Dr Landis SCHOOL/WORK RELEASE School/Work Release Comment: Do not work until further notice from urologist KODAK CHASE MD Jun 26, 2019 13:05
--- NOTE | 2019-06-26 13:23 | DS ---
Date/Time of Note Date/Time of Note DATE: 06/26/19 TIME: 13:22 Discharge Summary Admission/Discharge Info Admit Date/Time Jun 21, 2019 at 17:41 Discharge Date/Time Discharge Diagnosis * Retroperitoneal hemorrhage/hematoma. * Anemia of blood loss * Iron deficiency. * Multiple cysts of the Kidney , rule out Polycystic kidney disease (PKD), rule out Solid mass * At risk for sleep apnea * Hypertension * Obesity Hospital Course 38 m with no PMH PW severe abdominal and pelvic pain for the past several days in the setting of large retroperitoneal bleeding/ hematoma without evidence of active bleeding on CT angiogram. Seen by urology who reviewed the images with radiology . No role for embolization. Seen by general surgery and abdominal compartment syndrome was ruled out . Plan is to monitor vitals as well as HH and manage the pain while he will be at Bed rest with bathroom privileges. He is being followed by gen. surgery and urology. Repeat CT angiogram of the abdomen and pelvis did not show evidence of active bleeding . The retroperitoneal hematoma was reported to be grossly unchanged in size . Iron panel was consistent with iron deficiency # Large retroperitoneal bleeding/ hematoma without evidence of active bleeding on CT angiogram # Severe abdominopelvic pain , improving and requiring less of narcotics #Constipation #Anemia of acute blood loss , Hb slowly trended down and then improved on the day of DC #mild Renal insufficiency noted , 06/23 which responded well to IVF #Multiple Cysts in the Kidney , recommend genetic work up for PKD #Mild hydronephrosis of the left kidney , stable , in the setting of mass effect of the hematoma - Bed rest with bathroom privileges - monitor HH daily via blood draws to be reported to urology and PCP - Bowel regimen - Avoid heparin products and antiplatelets -PO Iron given Iron deficiency, will need GI work up as outpatient to rule out chronic GI blood loss Home Meds Active Scripts Acetaminophen* (Tylophen*) 500 Mg Capsule, 500 MG PO Q6H PRN for PAIN, #90 TAB Prov:KODAK CHASE MD 06/26/19 Polyethylene Glycol* (Miralax*) 17 Gm Powd.pack, 17 GM PO DAILY PRN for CONSTIPATION, #30 PACKET Prov:KODAK CHASE MD 06/26/19 Famotidine* (Famotidine*) 20 Mg Tablet, 20 MG PO HS, #30 TAB Prov:KODAK CHASE MD 06/26/19 Docusate Sodium* (Colace*) 100 Mg Capsule, 100 MG PO BID, #60 CAP Prov:KODAK CHASE MD 06/26/19 Amlodipine Besylate* (Amlodipine Besylate*) 10 Mg Tablet, 10 MG PO DAILY, #30 TAB Prov:KODAK CHASE MD 06/26/19 Ferrous Sulfate* (Ferrous Sulfate*) 325 Mg Tabec, 325 MG PO BID, #60 TAB Prov:KODAK CHASE MD 06/26/19 Follow-up Plan PCP in 7 days : * Follow up with Hemoglobin and Hematocrit * Referral to sleep studies to rule out/in sleep apnea * Referral to gear technician to rule out PKD * Referral to GI for Iron deficiency Follow up with urology Dr. Anant Landis for retroperitoneal hematoma and renal cysts in 7 days Primary Care Provider Not On Staff Doctor Pending Labs Laboratory Tests Test 06/26/19 05:00 06/26/19 06:31 White Blood Count 9.8 10^3/ul (4.8-10.8) Red Blood Count 3.59 10^6/ul (4.70-6.10) Hemoglobin 10.2 g/dl (14.0-18.0) Hematocrit 31.9 % (42.0-52.0) Mean Corpuscular Volume 88.9 fl (82.0-101.0) Mean Corpuscular Hemoglobin 28.4 pg (29.0-33.0) Mean Corpuscular 32.0 g/dl (32.0-37.0) Hemoglobin Concent Red Cell Distribution Width 13.3 % (11.5-14.5) Platelet Count 377 10^3/UL (140-415) Mean Platelet Volume 8.8 fl (7.4-10.4) Immature Granulocytes % 1.300 % (0.001-0.429) Neutrophils % 63.4 % (39.0-77.0) Lymphocytes % 20.7 % (15.0-51.0) Monocytes % 10.9 % (0.0-11.0) Eosinophils % 3.0 % (0.0-7.0) Basophils % 0.7 % (0.0-2.0) Nucleated Red Blood Cells % 0.3 /100WBC (0.0-0.0) Immature Granulocytes # 0.130 10^3/ul (0.0-0.031) Neutrophils # 6.2 10^3/ul (1.6-7.5) Lymphocytes # 2.0 10^3/ul (0.8-2.9) Monocytes # 1.1 10^3/ul (0.3-0.9) Eosinophils # 0.3 10^3/ul (0.0-0.5) Basophils # 0.1 10^3/ul (0.0-0.1) Nucleated Red Blood Cells # 0.0 10^3/ul (0.0-0.0) Sodium Level 138 mmol/L (135-144) Potassium Level 4.0 mmol/L (3.5-5.1) Chloride Level 102 mmol/L (97-110) Carbon Dioxide Level 29 mmol/L (21-31) Anion Gap 7 (5-13) Blood Urea Nitrogen 13 mg/dl (7-20) Creatinine 0.92 mg/dl (0.61-1.24) Est Glomerular Filtrat > 60 mL/min (>60) Rate mL/min Glucose Level 109 mg/dl (70-220) Calcium Level 8.7 mg/dl (8.4-10.2) Lab Scanned Report REFERENCE LAB [id number] KODAK CHASE MD Jun 26, 2019 13:23
[2019-06-26 14:28] VITALS: BP 128/73; PULSE 89; RESP 16
== END 2019-06-26 15:51 | disposition home health service (06) | DRG 394 ==
LOC: PED 17:41 → UNDOADMIN 17:41 → 2NE 17:41 → ICU 20:54 → PP2 06-24 23:09
PROVIDERS: ADMIT Internal Medicine; ATTEND Internal Medicine
DX: K66.1 Hemoperitoneum (principal); D62 Acute posthemorrhagic anemia; E66.01 Morbid (severe) obesity due to excess calories; N28.1 Cyst of kidney, acquired; I10 Essential (primary) hypertension; K59.00 Constipation, unspecified; D50.9 Iron deficiency anemia, unspecified; Z68.36 Body mass index [BMI] 36.0-36.9, adult; Z71.3 Dietary counseling and surveillance
CPT/HCPCS: 75635; 80048; 80053; 82550; 82607; 82746; 82962; 83540; 83605; 83735; 84100; 85014; 85018; 85025; 85610; 85730; 87081; C9113; J1170; J2270; J2916; J3010; J7030; J7042; Q9967